=== PATIENT | male | born 1945 | race African-American/Black ===

== ENCOUNTER 2017-05-08 16:23 | Observation (INO) | payer MEDICARE, OTHER ==
[~2017-05-08] VITALS: Ht 172.7 cm; Wt 101.6 kg
[~2017-05-08 16:23] MED LIST: AMLO-79 PO; ATEN100T PO; ATOR40TA70 PO; INSLAN SQ; INSU100C6 SQ
[2017-05-08] MEDS ORDERED: SODIUM CHLORIDE 0.9% 250 ML IV ONE (16:59)
[2017-05-08 17:11] LABS: EOSINOPHILS % 1.1 % (0.0-5.0); HEMATOCRIT. 36.6 % (42.0-52.0); HEMOGLOBIN. 11.8 g/dL (14.0-18.0); LYMPHOCYTES % 19.2 % (20.0-50.0); MEAN PLATELET VOLUME 8.4 fl (7.4-10.4); NEUTROPHILS % 70.7 % (40.0-76.0); PLATELET 254 x1000/uL (130-400); RED BLOOD CELL COUNT 4.07 mill/uL (4.7-6.1); RED CELL DISTRIBUTION WIDTH 17.2 % (11.6-14.6)
[2017-05-08 17:19] LABS: CARBON DIOXIDE 26 mEq/L (21-32); CHLORIDE 103 mEq/L (98-107)
[2017-05-08 17:25] LABS: TROPONIN I < 0.02 ng/mL (0.00-0.04)
[2017-05-08 23:00] VITALS: BP 86/62
[2017-05-09] MEDS ORDERED: DEXTROSE 50% WATER 50ML SYRINGE IV PRN (01:15)
[2017-05-09] MEDS ORDERED: ACETAMINOPHEN 325MG TABLET PO PRN (01:15)
[2017-05-09] MEDS ORDERED: SODIUM CHLORIDE 0.45% 1,000 ML IV SCH (01:15)
[2017-05-09 04:27] VITALS: BP 120/69
[2017-05-09 07:02] LABS: BASOPHILS % 0.8 % (0.0-2.0); EOSINOPHILS % 1.3 % (0.0-5.0); HEMATOCRIT. 34.6 % (42.0-52.0); HEMOGLOBIN. 11.4 g/dL (14.0-18.0); LYMPHOCYTES % 32.2 % (20.0-50.0); MEAN CORPUSCULAR HEMOGLOBIN 29.3 pg (28.0-32.0); MEAN CORPUSCULAR VOLUME 89.1 fL (80.0-94.0); MEAN PLATELET VOLUME 8.9 fl (7.4-10.4); MONOCYTES % 9.9 % (2.0-8.0); NEUTROPHILS % 55.8 % (40.0-76.0); PLATELET 233 x1000/uL (130-400); RED BLOOD CELL COUNT 3.88 mill/uL (4.7-6.1)
[2017-05-09] MEDS: BLOOD SUGAR DIAGNOSTIC STRIP TEST SCH ×3 (07:20→17:20)
[2017-05-09] MEDS: INSULIN LISPRO 100 UNITS/ML SUBCUT SCH ×3 (07:50→17:50)
[2017-05-09 07:54] LABS: CARBON DIOXIDE 25 mEq/L (21-32); CHLORIDE 103 mEq/L (98-107); HDL CHOLESTEROL 48 mg/dL (40-59); LDL CHOLESTEROL 97 mg/dL (5-100)
[2017-05-09 08:00] VITALS: BP 126/73
[2017-05-09 08:04] LABS: CREATINE KINASE 127 IU/L (39-308); CREATINE KINASE MB FRACTION 1.1 ng/mL (0.5-3.6); TROPONIN I < 0.02 ng/mL (0.00-0.04)
[2017-05-09] MEDS ORDERED: ASPIRIN 81MG TABLET PO SCH (09:00)
[2017-05-09] MEDS ORDERED: PANTOPRAZOLE SODIUM 40 MG/VIAL IV SCH (09:00)
[2017-05-09 12:00] VITALS: BP 105/43
[2017-05-09] MEDS ORDERED: SODIUM CHLORIDE 0.9% 1000ML BAG (SEPSIS BOLUS) IV ONE (14:00)
[2017-05-09] MEDS ORDERED: SODIUM CHLORIDE 0.9% 500 ML IV SCH (14:00)
[2017-05-09 16:00] VITALS: BP 158/80
[2017-05-09 16:25] LABS: CREATINE KINASE 113 IU/L (39-308); CREATINE KINASE MB FRACTION 1.1 ng/mL (0.5-3.6); TROPONIN I < 0.02 ng/mL (0.00-0.04)
[2017-05-09 17:31] VITALS: BP 144/77
== END 2017-05-09 18:00 | disposition home or self-care (01) ==
LOC: ER 16:50 → 6WST 17:24 → INTOOBSV 17:24 → ENRESERV 21:43
PROVIDERS: ADMIT Internal Medicine; ATTEND Internal Medicine
DX: R55 Syncope and collapse (principal); E11.22 Type 2 diabetes mellitus with diabetic chronic kidney disease; I12.0 Hypertensive chronic kidney disease with stage 5 chronic kidney disease or end stage renal disease; G90.8 Other disorders of autonomic nervous system; N18.6 End stage renal disease; Z99.2 Dependence on renal dialysis
CPT/HCPCS: 36415; 70450; 71010; 80053; 80061; 82550; 82553; 82962; 83735; 84443; 84484; 85025; 93005; 93880; 96361; 96372; 96374; 99285; C9113; G0378; J1815; J7040; J7050; 96360

== ENCOUNTER 2017-07-27 11:42 | Observation (INO) | payer MEDICARE, OTHER ==
[~2017-07-27] VITALS: Ht 172.7 cm; Wt 101.3 kg
[2017-07-27 12:23] LABS: BASOPHILS % 0.9 % (0.0-2.0); EOSINOPHILS % 0.7 % (0.0-5.0); HEMATOCRIT. 40.3 % (42.0-52.0); HEMOGLOBIN. 13.1 g/dL (14.0-18.0); LYMPHOCYTES % 32.2 % (20.0-50.0); MEAN CORPUSCULAR HEMOGLOBIN 29.7 pg (28.0-32.0); MEAN CORPUSCULAR VOLUME 91.2 fL (80.0-94.0); MEAN PLATELET VOLUME 8.6 fl (7.4-10.4); MONOCYTES % 10.2 % (2.0-8.0); PLATELET 336 x1000/uL (130-400); RED BLOOD CELL COUNT 4.42 mill/uL (4.7-6.1); RED CELL DISTRIBUTION WIDTH 14.5 % (11.6-14.6)
[2017-07-27 12:27] LABS: INR 1.1; PROTHROMBIN TIME 11.4 sec (9.4-11.6)
[2017-07-27 12:38] LABS: CARBON DIOXIDE 27 mEq/L (21-32); CHLORIDE 104 mEq/L (98-107); TROPONIN I < 0.02 ng/mL (0.00-0.04)
[2017-07-27] MEDS ORDERED: DEXTROSE 50% WATER 50ML SYRINGE IV ONE (12:45)
[2017-07-27 17:00] VITALS: BP 129/68
[2017-07-27] MEDS ORDERED: CLONIDINE 0.1MG TABLET PO PRN (17:15)
[2017-07-27] MEDS ORDERED: ONDANSETRON HCL 4MG/2ML VIAL IV PRN (17:15)
[2017-07-27] MEDS ORDERED: HYDROMORPHONE HCL/PF 2MG/ML CPJ IV PRN (17:15)
[2017-07-27] MEDS ORDERED: DEXTROSE 50% WATER 50ML SYRINGE IV PRN (17:15)
[2017-07-27] MEDS: BLOOD SUGAR DIAGNOSTIC STRIP TEST SCH ×2 (17:40→22:39)
[2017-07-27] MEDS: INSULIN LISPRO 100 UNITS/ML SUBCUT SCH ×2 (17:48→22:35)
[2017-07-27 20:00] VITALS: BP 117/72
[2017-07-27] MEDS ORDERED: FAMOTIDINE 20MG/2ML VIAL IV SCH (20:00)
[2017-07-27] MEDS ORDERED: ATORVASTATIN CALCIUM 40MG TABLET PO SCH (21:00)
[2017-07-27] MEDS ORDERED: MEDICATION NOT ON FORMULARY EA (Amlodipine Besylate/Benazepril (Amlodipine-Benazepril 10 PO SCH (21:00)
[2017-07-28] VITALS (7 sets, daily range): BP systolic 90–136; BP diastolic 44–71
[2017-07-28 06:44] LABS: HEMOGLOBIN 12.7 g/dL (14.0-18.0); MEAN CORPUSCULAR HEMOGLOBIN 29.6 pg (28.0-32.0); MEAN CORPUSCULAR VOLUME 90.8 fL (80.0-94.0); PLATELET 264 x1000/uL (130-400); RED CELL DISTRIBUTION WIDTH 14.8 % (11.6-14.6)
[2017-07-28 07:28] LABS: CARBON DIOXIDE 24 mEq/L (21-32); CHLORIDE 99 mEq/L (98-107)
[2017-07-28] MEDS: BLOOD SUGAR DIAGNOSTIC STRIP TEST SCH ×2 (07:32→12:40)
[2017-07-28] MEDS: INSULIN LISPRO 100 UNITS/ML SUBCUT SCH ×2 (08:56→14:34)
[2017-07-28] MEDS ORDERED: ATENOLOL 100 MG TABLET PO SCH (09:00)
[2017-07-28] MEDS ORDERED: ENOXAPARIN 30MG/0.3ML SYR SUBCUT SCH (09:00)
[2017-07-28] MEDS ORDERED: ENOXAPARIN 40MG/0.4ML SYR SUBCUT SCH (09:00)
[2017-07-28] MEDS ORDERED: BENAZEPRIL 20MG TABLET PO SCH (09:00)
[2017-07-28] MEDS ORDERED: PANTOPRAZOLE SODIUM 40 MG/VIAL IV SCH (09:00)
[2017-07-28] MEDS ORDERED: AMLODIPINE 10MG TABLET PO SCH (09:00)
== END 2017-07-28 18:15 | disposition home or self-care (01) ==
LOC: ER 11:44 → 7WST 13:04 → INTOOBSV 13:04 → EDBEDREQ 13:07 → EDBEDREQTM 13:07 → ENRESERV 15:38 → 7WST 17:10
PROVIDERS: ADMIT Internal Medicine; ATTEND Internal Medicine
DX: G90.8 Other disorders of autonomic nervous system (principal); I12.0 Hypertensive chronic kidney disease with stage 5 chronic kidney disease or end stage renal disease; E11.649 Type 2 diabetes mellitus with hypoglycemia without coma; E11.22 Type 2 diabetes mellitus with diabetic chronic kidney disease; N18.6 End stage renal disease; Z99.2 Dependence on renal dialysis
CPT/HCPCS: 36415; 71010; 80053; 82962; 83880; 84484; 85025; 85027; 85610; 93005; 96372; 96374; 96375; 99285; G0378; J1650; J1815; J3490

== ENCOUNTER 2018-04-15 22:52 | Emergency (ER) | payer OTHER ==
[~2018-04-15] VITALS: Ht 172.7 cm; Wt 113.0 kg
[~2018-04-15 22:52] MED LIST changes: -AMLO-79 PO; -ATEN100T PO; -ATOR40TA70 PO
[2018-04-16 02:26] LABS: CHLORIDE 108 mEq/L (98-107)
[2018-04-16 03:22] LABS: BASOPHILS % 0.9 % (0.0-2.0); EOSINOPHILS % 2.7 % (0.0-5.0); HEMOGLOBIN. 9.5 g/dL (14.0-18.0); MEAN CORPUSCULAR HEMOGLOBIN 30.5 pg (28.0-32.0); MEAN CORPUSCULAR VOLUME 92.7 fL (80.0-94.0); MEAN PLATELET VOLUME 9.9 fl (7.4-10.4); MONOCYTES % 8.4 % (2.0-8.0); PLATELET 171 x1000/uL (130-400); RED BLOOD CELL COUNT 3.13 mill/uL (4.7-6.1); RED CELL DISTRIBUTION WIDTH 16.6 % (11.6-14.6)
[2018-04-16 03:44] LABS: CLARITY URINE CLEAR (CLEAR); COLOR URINE YELLOW (YELLOW); KETONES URINE NEGATIVE (NEGATIVE); LEUKOCYTE ESTERASE URINE NEGATIVE (NEGATIVE); NITRITE URINE NEGATIVE (NEGATIVE); OCCULT BLOOD URINE 2+ (NEGATIVE); PROTEIN URINE 2+ (NEGATIVE); SPECIFIC GRAVITY URINE 1.015 (1.005-1.030); UROBILINOGEN URINE 0.2 E.U./dL (0.2-1.0)
[2018-04-16 07:00] VITALS: BP 144/69
== END 2018-04-16 07:45 | disposition home or self-care (01) ==
LOC: ER 22:52
DX: R60.9 Edema, unspecified (principal); E11.9 Type 2 diabetes mellitus without complications; I10 Essential (primary) hypertension; Z79.4 Long term (current) use of insulin
CPT/HCPCS: 36415; 80053; 81003; 85025; 99284

== ENCOUNTER 2018-07-03 16:48 | Inpatient (IN) | payer MEDICARE, OTHER ==
[~2018-07-03] VITALS: Ht 172.7 cm; Wt 121.1 kg
[2018-07-03] MEDS ORDERED: ONDANSETRON HCL 4MG/2ML INJ IV STA (18:34)
[2018-07-03] MEDS ORDERED: MORPHINE SULFATE 4 MG/ML CPJ (NOT FOR IM USE) IV STA (18:34)
[2018-07-03 19:21] LABS: BASOPHILS % 0.8 % (0.0-2.0); EOSINOPHILS % 2.5 % (0.0-5.0); HEMATOCRIT. 34.1 % (42.0-52.0); HEMOGLOBIN. 11.2 g/dL (14.0-18.0); MEAN CORPUSCULAR VOLUME 94.2 fL (80.0-94.0); MEAN PLATELET VOLUME 9.8 fl (7.4-10.4); MONOCYTES % 9.3 % (2.0-8.0); NEUTROPHILS % 72.4 % (40.0-76.0); PLATELET 177 x1000/uL (130-400); RED BLOOD CELL COUNT 3.62 mill/uL (4.7-6.1)
[2018-07-03 19:29] LABS: CHLORIDE 102 mEq/L (98-107)
[2018-07-03 19:34] LABS: INR 1.1; PARTIAL THROMBOPLASTIN TIME 28.6 sec (23.4-31.0); PROTHROMBIN TIME 10.7 sec (9.1-11.1)
[2018-07-03 19:37] LABS: ETHANOL BLOOD < 10 mg/dL
[2018-07-03 22:30] VITALS: BP 149/67
[2018-07-04] MEDS ORDERED: ACETAMINOPHEN 325MG TABLET PO PRN (00:45)
[2018-07-04] MEDS ORDERED: ATOR20TA65 MT (03:27)
[2018-07-04] MEDS ORDERED: REN800 MT (03:28)
[2018-07-04] MEDS ORDERED: FURO-151 MT (03:28)
[2018-07-04 04:00] VITALS: BP 186/86
[2018-07-04] MEDS ORDERED: CLONIDINE 0.1MG TABLET PO PRN (05:30)
[2018-07-04] MEDS: SODIUM CHLORIDE 0.9% INJ 3ML FLUSH IVF SCH ×3 (06:35→21:32)
[2018-07-04 06:56] LABS: BASOPHILS % 1.1 % (0.0-2.0); EOSINOPHILS % 2.5 % (0.0-5.0); HEMOGLOBIN. 11.7 g/dL (14.0-18.0); LYMPHOCYTES % 16.6 % (20.0-50.0); MEAN CORPUSCULAR HEMOGLOBIN 31.4 pg (28.0-32.0); MEAN CORPUSCULAR VOLUME 93.9 fL (80.0-94.0); MEAN PLATELET VOLUME 9.8 fl (7.4-10.4); MONOCYTES % 11.5 % (2.0-8.0); NEUTROPHILS % 68.3 % (40.0-76.0); PLATELET 184 x1000/uL (130-400); RED BLOOD CELL COUNT 3.73 mill/uL (4.7-6.1); RED CELL DISTRIBUTION WIDTH 14.2 % (11.6-14.6)
[2018-07-04 07:43] LABS: CHLORIDE 102 mEq/L (98-107)
[2018-07-04 07:53] LABS: LDL CHOLESTEROL 111 mg/dL (5-100)
[2018-07-04 07:55] LABS: HDL CHOLESTEROL 53 mg/dL (40-59)
[2018-07-04 08:00] VITALS: BP 159/77
[2018-07-04] MEDS: AMLODIPINE 10MG TABLET PO SCH (08:50)
[2018-07-04] MEDS: ATENOLOL 100 MG TABLET PO SCH (08:51)
[2018-07-04] MEDS: ASPIRIN 81MG TABLET PO SCH (08:51)
[2018-07-04] MEDS: LISINOPRIL 40MG TABLET PO SCH (08:51)
[2018-07-04] MEDS ORDERED: ENOXAPARIN 30MG/0.3ML SYR SUBCUT SCH (09:00)
[2018-07-04] MEDS ORDERED: INSULIN GLARGINE UD 100 UNITS/ML SYR SUBCUT SCH (10:00)
[2018-07-04] MEDS: INSULIN GLARGINE UD 100 UNITS/ML SYR SUBCUT SCH ×2 (11:04→21:32)
[2018-07-04 12:00] VITALS: BP 109/51
[2018-07-04 16:00] VITALS: BP 141/82
[2018-07-04] MEDS ORDERED: PANTOPRAZOLE 40MG DR TABLET PO SCH (16:00)
[2018-07-04] MEDS ORDERED: PANTOPRAZOLE 40MG DR TABLET PO NR (16:15)
[2018-07-04 20:00] VITALS: BP 128/61
[2018-07-04] MEDS ORDERED: ATORVASTATIN CALCIUM 40MG TABLET PO SCH (21:00)
[2018-07-05] VITALS: BP_SYST 124; BP_SYST 125; BP_DIAS 70; BP_DIAS 72
[2018-07-05] MEDS ORDERED: DEXTROSE 50% WATER 50ML SYRINGE IV PRN (01:30)
[2018-07-05 04:00] VITALS: BP 125/72
[2018-07-05] MEDS: SODIUM CHLORIDE 0.9% INJ 3ML FLUSH IVF SCH ×2 (05:24→14:04)
[2018-07-05] MEDS ORDERED: PANTOPRAZOLE 40MG DR TABLET PO SCH (07:40)
[2018-07-05 08:00] VITALS: BP 140/77
[2018-07-05] MEDS: BLOOD SUGAR DIAGNOSTIC STRIP TEST SCH ×3 (08:01→18:22)
[2018-07-05] MEDS: AMLODIPINE 10MG TABLET PO SCH (08:39)
[2018-07-05] MEDS: LISINOPRIL 40MG TABLET PO SCH (08:40)
[2018-07-05] MEDS: ASPIRIN 81MG TABLET PO SCH (08:40)
[2018-07-05] MEDS: ATENOLOL 100 MG TABLET PO SCH (08:40)
[2018-07-05] MEDS: INSULIN LISPRO 100 UNITS/ML SUBCUT SCH ×3 (08:44→18:10)
[2018-07-05] MEDS ORDERED: ENOXAPARIN 40MG/0.4ML SYR SUBCUT SCH (09:00)
[2018-07-05] MEDS: INSULIN GLARGINE UD 100 UNITS/ML SYR SUBCUT SCH (10:19)
[2018-07-05 12:00] VITALS: BP 111/57
[2018-07-05 16:00] VITALS: BP 132/67
[2018-07-05 18:26] VITALS: BP 129/68
== END 2018-07-05 19:12 | disposition home or self-care (01) | DRG 640 ==
LOC: ER 16:48 → 7WST 20:57 → ENRESERV 21:04 → 7WST 07-04 01:50
PROVIDERS: ADMIT Internal Medicine; ATTEND Internal Medicine
PROC: 5A1D70Z Performance of Urinary Filtration, Intermittent, Less than 6 Hours Per Day (ICD-10-PCS; principal; 2018-07-05)
DX: E87.70 Fluid overload, unspecified (principal); N18.6 End stage renal disease; I13.2 Hypertensive heart and chronic kidney disease with heart failure and with stage 5 chronic kidney disease, or end stage renal disease; D63.8 Anemia in other chronic diseases classified elsewhere; E11.21 Type 2 diabetes mellitus with diabetic nephropathy; E11.22 Type 2 diabetes mellitus with diabetic chronic kidney disease; E11.40 Type 2 diabetes mellitus with diabetic neuropathy, unspecified; E78.5 Hyperlipidemia, unspecified; I50.9 Heart failure, unspecified; Z91.19 Patient's noncompliance with other medical treatment and regimen; Z99.2 Dependence on renal dialysis; Z86.73 Personal history of transient ischemic attack (TIA), and cerebral infarction without residual deficits; Z79.4 Long term (current) use of insulin
CPT/HCPCS: 36415; 71045; 80048; 80053; 80061; 82962; 83036; 83690; 83880; 84484; 85025; 85610; 85730; 93005; 93306; 96374; 96375; 99285; G0482; J1650; J1815; J2270; J2405; J7030

== ENCOUNTER 2019-02-20 09:50 | Emergency (ER) | payer OTHER, MEDICAID ==
[~2019-02-20] VITALS: Ht 172.7 cm; Wt 113.0 kg
[~2019-02-20 09:50] MED LIST changes: +ATOR20TA65 MT; +FURO-151 MT; +REN800 MT
[2019-02-20] MEDS ORDERED: ACETAMINOPHEN 325MG TABLET PO STA (10:18)
[2019-02-20] MEDS ORDERED: KETOROLAC 30MG/ML VIAL IV STA (10:18)
[2019-02-20] MEDS ORDERED: SODIUM CHLORIDE 0.9% 1000ML BAG (SEPSIS BOLUS) IV ONE (10:30)
[2019-02-20] MEDS ORDERED: METOCLOPRAMIDE HCL 10MG/2ML VIAL IV ONE (10:30)
[2019-02-20 11:07] LABS: BASOPHILS % 0.9 % (0.0-2.0); EOSINOPHILS % 2.3 % (0.0-5.0); HEMATOCRIT. 35.5 % (42.0-52.0); HEMOGLOBIN. 11.4 g/dL (14.0-18.0); LYMPHOCYTES % 17.4 % (20.0-50.0); MEAN CORPUSCULAR HEMOGLOBIN 30.4 pg (28.0-32.0); MEAN CORPUSCULAR VOLUME 94.8 fL (80.0-94.0); MEAN PLATELET VOLUME 9.6 fl (7.4-10.4); NEUTROPHILS % 71.4 % (40.0-76.0); PLATELET 263 x1000/uL (130-400); RED BLOOD CELL COUNT 3.75 mill/uL (4.7-6.1); RED CELL DISTRIBUTION WIDTH 14.3 % (11.6-14.6)
[2019-02-20 11:13] LABS: INR 1.1; PROTHROMBIN TIME 10.9 sec (9.6-11.0)
[2019-02-20 11:16] LABS: CHLORIDE 103 mEq/L (98-107)
[2019-02-20 13:06] LABS: CLARITY URINE CLEAR (CLEAR); COLOR URINE YELLOW (YELLOW); KETONES URINE NEGATIVE (NEGATIVE); LEUKOCYTE ESTERASE URINE NEGATIVE (NEGATIVE); NITRITE URINE NEGATIVE (NEGATIVE); OCCULT BLOOD URINE 1+ (NEGATIVE); PH URINE 7.5 (4.5-8.0); PROTEIN URINE 3+ (NEGATIVE); SPECIFIC GRAVITY URINE 1.017 (1.005-1.030); UROBILINOGEN URINE 0.2 E.U./dL (0.2-1.0)
[2019-02-20 14:38] VITALS: BP 162/98
== END 2019-02-20 14:40 | disposition home or self-care (01) ==
LOC: ER 10:32
DX: R53.1 Weakness (principal); E11.22 Type 2 diabetes mellitus with diabetic chronic kidney disease; E11.65 Type 2 diabetes mellitus with hyperglycemia; I12.0 Hypertensive chronic kidney disease with stage 5 chronic kidney disease or end stage renal disease; N18.6 End stage renal disease; Z99.2 Dependence on renal dialysis; Z79.4 Long term (current) use of insulin
CPT/HCPCS: 36415; 71045; 80053; 81003; 83605; 84145; 84484; 85025; 85610; 87040; 87086; 93005; 96374; 99284; J2765; J7030

== ENCOUNTER 2019-08-01 20:58 | Inpatient (IN) | payer MEDICARE, OTHER ==
[~2019-08-01] VITALS: Ht 172.7 cm; Wt 109.0 kg
[2019-08-01] MEDS ORDERED: ONDANSETRON HCL 4MG/2ML INJ IV STA (22:01)
[2019-08-01] MEDS ORDERED: MORPHINE SULFATE 4 MG/ML CPJ (NOT FOR IM USE) IV STA (22:01)
[2019-08-01] MEDS ORDERED: CLONIDINE 0.2MG TABLET PO ONE (22:15)
[2019-08-01 22:23] LABS: BASOPHILS % 0.4 % (0.0-2.0); EOSINOPHILS % 1.1 % (0.0-5.0); HEMATOCRIT. 33.7 % (42.0-52.0); MEAN CORPUSCULAR HEMOGLOBIN 29.8 pg (28.0-32.0); MEAN CORPUSCULAR VOLUME 91.4 fL (80.0-94.0); MEAN PLATELET VOLUME 9.2 fl (7.4-10.4); NEUTROPHILS % 80.5 % (40.0-76.0); PLATELET 232 x1000/uL (130-400); RED BLOOD CELL COUNT 3.69 mill/uL (4.7-6.1)
[2019-08-01 22:29] LABS: CHLORIDE 101 mEq/L (98-107)
[2019-08-01 22:32] LABS: INR 1.1; PARTIAL THROMBOPLASTIN TIME 25.7 sec (23.4-31.0); PROTHROMBIN TIME 10.9 sec (9.6-11.0)
[2019-08-02 08:00] VITALS: BP 139/63
[2019-08-02] MEDS ORDERED: DEXTROSE 50% WATER 50ML SYRINGE IV PRN (10:45)
[2019-08-02] MEDS: INSULIN LISPRO 100 UNITS/ML SUBCUT SCH ×3 (10:57→21:43)
[2019-08-02 12:00] VITALS: BP 153/69
[2019-08-02 13:36] LABS: BASOPHILS % 0.7 % (0.0-2.0); EOSINOPHILS % 1.9 % (0.0-5.0); HEMATOCRIT. 29.3 % (42.0-52.0); HEMOGLOBIN. 9.4 g/dL (14.0-18.0); LYMPHOCYTES % 13.2 % (20.0-50.0); MEAN CORPUSCULAR HEMOGLOBIN 29.6 pg (28.0-32.0); MEAN CORPUSCULAR VOLUME 92.6 fL (80.0-94.0); MEAN PLATELET VOLUME 9.2 fl (7.4-10.4); NEUTROPHILS % 74.2 % (40.0-76.0); PLATELET 210 x1000/uL (130-400); RED BLOOD CELL COUNT 3.16 mill/uL (4.7-6.1); RED CELL DISTRIBUTION WIDTH 15.3 % (11.6-14.6)
[2019-08-02] MEDS: BLOOD SUGAR DIAGNOSTIC STRIP TEST SCH ×3 (13:37→21:35)
[2019-08-02 13:41] LABS: CHLORIDE 103 mEq/L (98-107)
[2019-08-02] MEDS ORDERED: INSULIN GLARGINE UD 100 UNITS/ML SYR SUBCUT SCH (14:00)
[2019-08-02 16:00] VITALS: BP 150/76
[2019-08-02] MEDS ORDERED: LORAZEPAM 2MG/ML CPJ IV PRN (16:30)
[2019-08-02] MEDS ORDERED: ONDANSETRON HCL 4MG/2ML INJ IV PRN (16:30)
[2019-08-02] MEDS ORDERED: DIPHENHYDRAMINE 50MG/ML VIAL IV PRN (16:30)
[2019-08-02] MEDS ORDERED: IPRATROPIUM/ALBUTEROL 0.5-3(2.5)MG/3ML NEB HHN PRN (16:30)
[2019-08-02] MEDS ORDERED: CLONIDINE 0.1MG TABLET PO PRN (16:30)
[2019-08-02] MEDS ORDERED: LACTULOSE 20G/30ML UDC PO PRN (16:30)
[2019-08-02] MEDS ORDERED: POTASSIUM CHLORIDE 20MEQ TABLET SR PO NR (16:50)
[2019-08-02] MEDS ORDERED: HYDROCODONE/ACETAMINOPHEN 5/325MG TABLET PO PRN (17:00)
[2019-08-02] MEDS: AMLODIPINE 5MG TABLET PO SCH (18:24)
[2019-08-02 20:00] VITALS: BP 141/60
[2019-08-02] MEDS: FAMOTIDINE 20MG TABLET PO SCH (21:14)
[2019-08-02] MEDS: INSULIN GLARGINE UD 100 UNITS/ML SYR SUBCUT SCH (21:35)
[2019-08-03] VITALS: BP 125/69
[2019-08-03 04:00] VITALS: BP 157/67
[2019-08-03] MEDS: BLOOD SUGAR DIAGNOSTIC STRIP TEST SCH ×4 (05:43→21:30)
[2019-08-03 07:54] LABS: HEMATOCRIT 31.7 % (42.0-52.0); HEMOGLOBIN 10.2 g/dL (14.0-18.0); MEAN CORPUSCULAR HEMOGLOBIN 29.2 pg (28.0-32.0); MEAN CORPUSCULAR VOLUME 90.9 fL (80.0-94.0); PLATELET 243 x1000/uL (130-400); RED BLOOD CELL COUNT 3.48 mill/uL (4.7-6.1); RED CELL DISTRIBUTION WIDTH 15.1 % (11.6-14.6)
[2019-08-03 08:00] VITALS: BP 159/61
[2019-08-03 08:06] LABS: PHOSPHORUS 4.9 mg/dL (2.5-4.9)
[2019-08-03 08:10] LABS: T4 FREE 1.12 ng/dL (0.76-1.46)
[2019-08-03] MEDS: AMLODIPINE 5MG TABLET PO SCH (10:19)
[2019-08-03] MEDS: INSULIN GLARGINE UD 100 UNITS/ML SYR SUBCUT SCH ×2 (10:21→21:55)
[2019-08-03] MEDS: INSULIN LISPRO 100 UNITS/ML SUBCUT SCH ×5 (10:22→18:27)
[2019-08-03 12:00] VITALS: BP 179/84
[2019-08-03] MEDS ORDERED: BLOOD SUGAR DIAGNOSTIC STRIP TEST SCH (12:40)
[2019-08-03] MEDS ORDERED: DEXTROSE 50% WATER 50ML SYRINGE IV PRN (12:45)
[2019-08-03 16:00] VITALS: BP 141/64
[2019-08-03] MEDS ORDERED: LEVOFLOXACIN 500MG TABLET PO SCH (18:00)
[2019-08-03 20:00] VITALS: BP 130/77
[2019-08-03] MEDS: FAMOTIDINE 20MG TABLET PO SCH (21:34)
[2019-08-04] VITALS: BP 113/46
[2019-08-04 04:00] VITALS: BP 141/63
[2019-08-04] MEDS: BLOOD SUGAR DIAGNOSTIC STRIP TEST SCH ×2 (06:01→12:33)
[2019-08-04 07:24] LABS: HEMATOCRIT 32.3 % (42.0-52.0); HEMOGLOBIN 10.5 g/dL (14.0-18.0); MEAN CORPUSCULAR HEMOGLOBIN 29.7 pg (28.0-32.0); PLATELET 256 x1000/uL (130-400); RED BLOOD CELL COUNT 3.55 mill/uL (4.7-6.1); RED CELL DISTRIBUTION WIDTH 15.1 % (11.6-14.6)
[2019-08-04 09:40] VITALS: BP 120/64
[2019-08-04] MEDS: AMLODIPINE 5MG TABLET PO SCH (09:40)
[2019-08-04] MEDS: INSULIN GLARGINE UD 100 UNITS/ML SYR SUBCUT SCH (10:30)
[2019-08-04 12:00] VITALS: BP 125/69
[2019-08-04] MEDS ORDERED: INSULIN LISPRO 100 UNITS/ML SUBCUT NR (13:30)
[2019-08-04 16:00] VITALS: BP 134/67
[2019-08-04 16:04] VITALS: BP 134/67
[2019-08-05] MEDS ORDERED: LEVOFLOXACIN 250MG TABLET PO SCH (11:00)
== END 2019-08-04 17:05 | disposition home or self-care (01) | DRG 291 ==
LOC: ER 22:51 → 7WST 08-02 00:43 → EDBEDREQ 08-02 00:47 → EDBEDREQTM 08-02 00:47 → ENRESERV 08-02 07:23
PROVIDERS: ADMIT Internal Medicine; ATTEND Internal Medicine
PROC: 5A1D70Z Performance of Urinary Filtration, Intermittent, Less than 6 Hours Per Day (ICD-10-PCS; principal; 2019-08-02)
PROC: 5A1D70Z Performance of Urinary Filtration, Intermittent, Less than 6 Hours Per Day (ICD-10-PCS; 2019-08-03)
DX: I13.2 Hypertensive heart and chronic kidney disease with heart failure and with stage 5 chronic kidney disease, or end stage renal disease (principal); I50.33 Acute on chronic diastolic (congestive) heart failure; N18.6 End stage renal disease; E66.2 Morbid (severe) obesity with alveolar hypoventilation; D64.9 Anemia, unspecified; E11.22 Type 2 diabetes mellitus with diabetic chronic kidney disease; E78.00 Pure hypercholesterolemia, unspecified; G89.29 Other chronic pain; E11.65 Type 2 diabetes mellitus with hyperglycemia; M79.604 Pain in right leg; E78.5 Hyperlipidemia, unspecified; E87.6 Hypokalemia; I16.0 Hypertensive urgency; Z86.73 Personal history of transient ischemic attack (TIA), and cerebral infarction without residual deficits; Z87.891 Personal history of nicotine dependence; Z99.2 Dependence on renal dialysis; Z91.19 Patient's noncompliance with other medical treatment and regimen; Z68.36 Body mass index [BMI] 36.0-36.9, adult
CPT/HCPCS: 36415; 71045; 80048; 82962; 83036; 83735; 83880; 84100; 84439; 84443; 84484; 85027; 93005; 93923; 97161; 99285; J1815; J2270; J2405

== ENCOUNTER 2019-08-15 22:21 | Inpatient (IN) | payer MEDICARE, OTHER ==
[~2019-08-15] VITALS: Ht 172.7 cm; Wt 106.1 kg
[2019-08-16 00:30] LABS: BASOPHILS % 0.9 % (0.0-2.0); EOSINOPHILS % 1.4 % (0.0-5.0); HEMATOCRIT. 35.7 % (42.0-52.0); HEMOGLOBIN. 11.5 g/dL (14.0-18.0); LYMPHOCYTES % 13.4 % (20.0-50.0); MEAN CORPUSCULAR HEMOGLOBIN 29.5 pg (28.0-32.0); MEAN CORPUSCULAR VOLUME 91.6 fL (80.0-94.0); MEAN PLATELET VOLUME 8.7 fl (7.4-10.4); MONOCYTES % 6.3 % (2.0-8.0); PLATELET 301 x1000/uL (130-400)
[2019-08-16 00:32] LABS: CLARITY URINE CLEAR (CLEAR); COLOR URINE YELLOW (YELLOW); KETONES URINE NEGATIVE (NEGATIVE); LEUKOCYTE ESTERASE URINE NEGATIVE (NEGATIVE); NITRITE URINE NEGATIVE (NEGATIVE); OCCULT BLOOD URINE 1+ (NEGATIVE); PROTEIN URINE 3+ (NEGATIVE); SPECIFIC GRAVITY URINE 1.017 (1.005-1.030); UROBILINOGEN URINE 0.2 E.U./dL (0.2-1.0)
[2019-08-16 00:37] LABS: CHLORIDE 101 mEq/L (98-107)
[2019-08-16] MEDS ORDERED: MORPHINE SULFATE 2 MG/ML CPJ (NOT FOR IM USE) IV PRN (05:12)
[2019-08-16] MEDS ORDERED: DEXTROSE 50% WATER 50ML SYRINGE IV PRN (05:15)
[2019-08-16] MEDS: BLOOD SUGAR DIAGNOSTIC STRIP TEST SCH ×4 (09:07→21:17)
[2019-08-16] MEDS: INSULIN LISPRO (LOW DOSE) 100 UNITS/ML SUBCUT SCH ×4 (09:22→21:17)
[2019-08-16 10:39] VITALS: BP 199/101
[2019-08-16 12:00] VITALS: BP 185/97
[2019-08-16] MEDS ORDERED: ONDANSETRON HCL 4MG/2ML INJ IV PRN (12:30)
[2019-08-16] MEDS ORDERED: ACETAMINOPHEN 325MG TABLET PO PRN (12:30)
[2019-08-16] MEDS ORDERED: IPRATROPIUM/ALBUTEROL 0.5-3(2.5)MG/3ML NEB HHN PRN (12:30)
[2019-08-16] MEDS ORDERED: CLONIDINE 0.1MG TABLET PO PRN ×2 (12:30→13:45)
[2019-08-16] MEDS ORDERED: HYDROCODONE/ACETAMINOPHEN 5/325MG TABLET PO PRN (12:30)
[2019-08-16] MEDS ORDERED: ASPIRIN 81MG EC TABLET PO SCH (13:00)
[2019-08-16] MEDS ORDERED: ENOXAPARIN 40MG/0.4ML SYR SUBCUT SCH (13:00)
[2019-08-16] MEDS ORDERED: HYDRALAZINE 20MG/ML VIAL IV PRN (13:30)
[2019-08-16 14:16] LABS: *AMPHETAMINES SCREEN URINE NEGATIVE (NEGATIVE); *BARBITURATES SCREEN URINE NEGATIVE (NEGATIVE); CANNABINOID URINE SCREEN NEGATIVE (NEGATIVE)
[2019-08-16 14:18] LABS: *BENZODIAZEPINES SCREEN URINE NEGATIVE (NEGATIVE)
[2019-08-16 14:19] LABS: *COCAINE SCREEN URINE NEGATIVE (NEGATIVE); METHADONE URINE SCREEN NEGATIVE (NEGATIVE)
[2019-08-16 14:20] LABS: OPIATES URINE SCREEN NEGATIVE (NEGATIVE); PHENCYCLIDINE URINE SCREEN NEGATIVE (NEGATIVE)
[2019-08-16] MEDS: AMLODIPINE 5MG TABLET PO SCH ×2 (14:26→21:16)
[2019-08-16] MEDS: LOSARTAN POTASSIUM 25 MG TABLET PO SCH ×2 (14:26→21:16)
[2019-08-16 16:00] VITALS: BP 157/84
[2019-08-16 16:09] LABS: CREATINE KINASE 93 IU/L (39-308)
[2019-08-16 16:10] LABS: CREATINE KINASE MB FRACTION 2.6 ng/mL (0.5-3.6)
[2019-08-16] MEDS ORDERED: INSULIN GLARGINE UD 100 UNITS/ML SYR SUBCUT NR (17:30)
[2019-08-16 20:00] VITALS: BP 172/74
[2019-08-17] VITALS (10 sets, daily range): BP systolic 114–155; BP diastolic 48–99
[2019-08-17 00:26] LABS: CREATINE KINASE 81 IU/L (39-308)
[2019-08-17 00:27] LABS: CREATINE KINASE MB FRACTION 2.2 ng/mL (0.5-3.6)
[2019-08-17 05:37] LABS: BASOPHILS % 0.8 % (0.0-2.0); EOSINOPHILS % 1.8 % (0.0-5.0); HEMATOCRIT. 36.5 % (42.0-52.0); HEMOGLOBIN. 11.8 g/dL (14.0-18.0); LYMPHOCYTES % 16.9 % (20.0-50.0); MEAN CORPUSCULAR HEMOGLOBIN 29.6 pg (28.0-32.0); MEAN CORPUSCULAR VOLUME 91.5 fL (80.0-94.0); MEAN PLATELET VOLUME 9.1 fl (7.4-10.4); MONOCYTES % 6.1 % (2.0-8.0); NEUTROPHILS % 74.4 % (40.0-76.0); PLATELET 317 x1000/uL (130-400); RED BLOOD CELL COUNT 3.99 mill/uL (4.7-6.1); RED CELL DISTRIBUTION WIDTH 15.2 % (11.6-14.6)
[2019-08-17 07:03] LABS: CHLORIDE 103 mEq/L (98-107)
[2019-08-17 07:19] LABS: HDL CHOLESTEROL 60 mg/dL (40-59)
[2019-08-17 07:20] LABS: LDL CHOLESTEROL 55 mg/dL (5-100)
[2019-08-17 07:25] LABS: T4 FREE 0.99 ng/dL (0.76-1.46)
[2019-08-17] MEDS ORDERED: LIDOCAINE HCL 1% 20ML VIAL (Pyxis) INJ ONE ×2 (07:37→08:15)
[2019-08-17] MEDS ORDERED: IODIXANOL 320MG/ML 100 ML BOTTLE IV ONE ×2 (07:37→08:50)
[2019-08-17] MEDS ORDERED: MIDAZOLAM HCL 2 MG/2 ML VIAL ONE (07:40)
[2019-08-17] MEDS ORDERED: FENTANYL CITRATE/PF 50MCG/ML 2ML VIAL ONE (07:40)
[2019-08-17] MEDS ORDERED: ASPIRIN/SOD BICARB/CITRIC ACID 324MG TAB EFF ONE (07:45)
[2019-08-17 07:50] LABS: CREATINE KINASE MB FRACTION 2.4 ng/mL (0.5-3.6)
[2019-08-17] MEDS: INSULIN LISPRO (LOW DOSE) 100 UNITS/ML SUBCUT SCH ×4 (08:10→20:13)
[2019-08-17] MEDS ORDERED: IOHEXOL-300 100 ML BOTTLE ONE (08:42)
[2019-08-17] MEDS ORDERED: NICARDIPINE 100MCG/ML 10ML VIAL (CATH LAB) IV ONE (09:00)
[2019-08-17] MEDS: AMLODIPINE 5MG TABLET PO SCH ×2 (09:00→20:14)
[2019-08-17] MEDS: LOSARTAN POTASSIUM 25 MG TABLET PO SCH ×2 (09:00→20:14)
[2019-08-17] MEDS ORDERED: NITROGLYCERIN 50MCG/ML 10ML VIAL (CATH LAB) IV ONE (09:00)
[2019-08-17] MEDS ORDERED: HEPARIN SODIUM 1,000 UNIT/1ML VIAL IV ONE (09:00)
[2019-08-17] MEDS ORDERED: CLOPIDOGREL 75MG TABLET ONE (09:05)
[2019-08-17] MEDS ORDERED: ONDANSETRON HCL 4MG/2ML INJ IV PRN (09:15)
[2019-08-17] MEDS ORDERED: MORPHINE SULFATE 2 MG/ML CPJ (NOT FOR IM USE) IV PRN (09:15)
[2019-08-17] MEDS ORDERED: ATROPINE SULFATE 1MG/10ML SYR IV PRN (09:15)
[2019-08-17] MEDS ORDERED: ACETAMINOPHEN 325MG TABLET PO PRN (09:15)
[2019-08-17] MEDS ORDERED: CLOPIDOGREL 75MG TABLET PO ONE (09:15)
[2019-08-17] MEDS: EZETIMIBE 10MG TABLET PO SCH (09:30)
[2019-08-17] MEDS: ASPIRIN 325MG TABLET PO SCH (10:07)
[2019-08-17] MEDS: CLOPIDOGREL 75MG TABLET PO SCH (10:07)
[2019-08-17] MEDS: BLOOD SUGAR DIAGNOSTIC STRIP TEST SCH ×3 (12:19→20:14)
[2019-08-18] VITALS: BP_SYST 127; BP_SYST 162; BP_DIAS 74; BP_DIAS 85
[2019-08-18 02:00] VITALS: BP 116/74
[2019-08-18 04:00] VITALS: BP 125/77
[2019-08-18 06:00] VITALS: BP 145/89
[2019-08-18] MEDS: BLOOD SUGAR DIAGNOSTIC STRIP TEST SCH ×2 (06:40→11:57)
[2019-08-18 07:10] LABS: BASOPHILS % 0.8 % (0.0-2.0); EOSINOPHILS % 1.7 % (0.0-5.0); HEMATOCRIT. 36.6 % (42.0-52.0); HEMOGLOBIN. 11.9 g/dL (14.0-18.0); LYMPHOCYTES % 15.6 % (20.0-50.0); MEAN CORPUSCULAR HEMOGLOBIN 29.3 pg (28.0-32.0); MEAN CORPUSCULAR VOLUME 90.7 fL (80.0-94.0); MEAN PLATELET VOLUME 9.3 fl (7.4-10.4); NEUTROPHILS % 72.9 % (40.0-76.0); PLATELET 267 x1000/uL (130-400); RED BLOOD CELL COUNT 4.04 mill/uL (4.7-6.1); RED CELL DISTRIBUTION WIDTH 15.3 % (11.6-14.6)
[2019-08-18 08:00] VITALS: BP 130/95
[2019-08-18] MEDS: INSULIN LISPRO (LOW DOSE) 100 UNITS/ML SUBCUT SCH ×2 (08:20→12:14)
[2019-08-18] MEDS: AMLODIPINE 5MG TABLET PO SCH (08:21)
[2019-08-18] MEDS: EZETIMIBE 10MG TABLET PO SCH (08:21)
[2019-08-18] MEDS: LOSARTAN POTASSIUM 25 MG TABLET PO SCH (08:22)
[2019-08-18] MEDS: ASPIRIN 325MG TABLET PO SCH (09:55)
[2019-08-18] MEDS: CLOPIDOGREL 75MG TABLET PO SCH (09:55)
[2019-08-18 10:00] VITALS: BP 155/89
[2019-08-18 11:33] LABS: BG BASE EXCESS -5.8 mmol/L (-2.0-2.0); BG CARBOXYHEMOGLOBIN 0.3 % (0.5-1.5); BG FRACTION INSPIRED OXYGEN 21; BG HCO3 ACT 20.1 mmol/L (22.0-26.0); BG METHEMOGLOBIN 0.3 % (0.0-1.5); BG OXYHEMOGLOBIN 94.4 % (94.0-97.0); BG PCO2 41.1 mmHg (35.0-45.0); BG PH 7.308 (7.350-7.450); BG PO2 82.9 mmHg (75.0-100.0); BG SAMPLE SITE RIGHT RADIAL; BG TOTAL HEMOGLOBIN 12.1 g/dL (12.0-18.0); BG VENT MODE ROOM AIR
[2019-08-18] MEDS ORDERED: CLOP75TA4 MT (12:33)
== END 2019-08-18 14:20 | disposition home or self-care (01) | DRG 246 ==
LOC: ER 22:21 → 7WST 08-16 02:24 → EDBEDREQ 08-16 02:30 → EDBEDREQTM 08-16 02:30 → ENRESERV 08-16 08:29 → 3WST 08-17 09:45
PROVIDERS: ADMIT Internal Medicine; ATTEND Internal Medicine
PROC: 5A1D70Z Performance of Urinary Filtration, Intermittent, Less than 6 Hours Per Day (ICD-10-PCS; 2019-08-16)
PROC: 027034Z Dilation of Coronary Artery, One Artery with Drug-eluting Intraluminal Device, Percutaneous Approach (ICD-10-PCS; principal; 2019-08-17)
PROC: 4A023N7 Measurement of Cardiac Sampling and Pressure, Left Heart, Percutaneous Approach (ICD-10-PCS; 2019-08-17)
PROC: B2111ZZ Fluoroscopy of Multiple Coronary Arteries using Low Osmolar Contrast (ICD-10-PCS; 2019-08-17)
PROC: 4A033BC Measurement of Arterial Pressure, Coronary, Percutaneous Approach (ICD-10-PCS; 2019-08-17)
PROC: B2151ZZ Fluoroscopy of Left Heart using Low Osmolar Contrast (ICD-10-PCS; 2019-08-17)
DX: I13.2 Hypertensive heart and chronic kidney disease with heart failure and with stage 5 chronic kidney disease, or end stage renal disease (principal); N18.6 End stage renal disease; I50.33 Acute on chronic diastolic (congestive) heart failure; E66.2 Morbid (severe) obesity with alveolar hypoventilation; R07.89 Other chest pain; I44.7 Left bundle-branch block, unspecified; E11.22 Type 2 diabetes mellitus with diabetic chronic kidney disease; I16.0 Hypertensive urgency; E78.00 Pure hypercholesterolemia, unspecified; E78.5 Hyperlipidemia, unspecified; D64.9 Anemia, unspecified; M79.604 Pain in right leg; I25.10 Atherosclerotic heart disease of native coronary artery without angina pectoris; Z79.82 Long term (current) use of aspirin; Z79.02 Long term (current) use of antithrombotics/antiplatelets; Z99.2 Dependence on renal dialysis; Z86.73 Personal history of transient ischemic attack (TIA), and cerebral infarction without residual deficits; Z91.19 Patient's noncompliance with other medical treatment and regimen; Z87.891 Personal history of nicotine dependence; Z68.35 Body mass index [BMI] 35.0-35.9, adult; Z79.84 Long term (current) use of oral hypoglycemic drugs
CPT/HCPCS: 36415; 36600; 71045; 80048; 80061; 80305; 81003; 82375; 82550; 82553; 82805; 82962; 83735; 83880; 84439; 84443; 84484; 85379; 92928; 93005; 93306; 93458; 93571; 99285; C1760; C1769; C1874; C1887; C1893; J1644; J1650; J1815; J2250; J2270; J3010; J3490; J7040; Q9967

== ENCOUNTER 2019-11-08 02:05 | Emergency (ER) | payer MEDICARE, OTHER ==
[~2019-11-08] VITALS: Ht 167.6 cm; Wt 91.0 kg
[~2019-11-08 02:05] MED LIST changes: -ATOR20TA65 MT; +CLOP75TA4 MT; -FURO-151 MT; -INSLAN SQ; -INSU100C6 SQ; -REN800 MT
[2019-11-08] MEDS ORDERED: AMLODIPINE 5MG TABLET PO ONE (05:00)
[2019-11-08] MEDS ORDERED: ACETAMINOPHEN 325MG TABLET PO ONE (05:15)
[2019-11-08 06:52] LABS: BASOPHILS % 0.9 % (0.0-2.0); EOSINOPHILS % 2.3 % (0.0-5.0); HEMOGLOBIN. 11.9 g/dL (14.0-18.0); LYMPHOCYTES % 20.5 % (20.0-50.0); MEAN CORPUSCULAR HEMOGLOBIN 28.7 pg (28.0-32.0); MEAN CORPUSCULAR VOLUME 89.2 fL (80.0-94.0); MEAN PLATELET VOLUME 9.8 fl (7.4-10.4); MONOCYTES % 6.9 % (2.0-8.0); NEUTROPHILS % 69.4 % (40.0-76.0); PLATELET 207 x1000/uL (130-400); RED BLOOD CELL COUNT 4.15 mill/uL (4.7-6.1); RED CELL DISTRIBUTION WIDTH 14.9 % (11.6-14.6)
[2019-11-08 06:59] LABS: CHLORIDE 102 mEq/L (98-107)
[2019-11-08 11:30] VITALS: BP 141/90
== END 2019-11-08 13:30 | disposition home or self-care (01) ==
LOC: ER 02:05
DX: R53.1 Weakness (principal); I12.0 Hypertensive chronic kidney disease with stage 5 chronic kidney disease or end stage renal disease; N18.6 End stage renal disease; Z99.2 Dependence on renal dialysis
CPT/HCPCS: 36415; 71045; 80053; 82962; 85025; 93005; 99284

== ENCOUNTER 2020-02-22 08:56 | Inpatient (IN) | payer MEDICARE, OTHER ==
[~2020-02-22] VITALS: Ht 172.7 cm; Wt 104.3 kg
[2020-02-22 11:43] LABS: BASOPHILS % 0.6 % (0.0-2.0); EOSINOPHILS % 1.1 % (0.0-5.0); HEMATOCRIT. 27.8 % (42.0-52.0); LYMPHOCYTES % 8.1 % (20.0-50.0); MEAN CORPUSCULAR HEMOGLOBIN 29.6 pg (28.0-32.0); MEAN CORPUSCULAR VOLUME 91.1 fL (80.0-94.0); MEAN PLATELET VOLUME 9.4 fl (7.4-10.4); MONOCYTES % 5.8 % (2.0-8.0); NEUTROPHILS % 84.4 % (40.0-76.0); PLATELET 196 x1000/uL (130-400); RED BLOOD CELL COUNT 3.05 mill/uL (4.7-6.1); RED CELL DISTRIBUTION WIDTH 15.1 % (11.6-14.6)
[2020-02-22 11:46] LABS: PROTHROMBIN TIME 10.8 sec (9.6-11.0)
[2020-02-22 11:49] LABS: CHLORIDE 103 mEq/L (98-107)
[2020-02-22] MEDS ORDERED: CLONIDINE 0.1MG TABLET PO PRN (13:00)
[2020-02-22] MEDS ORDERED: IPRATROPIUM/ALBUTEROL 0.5-3(2.5)MG/3ML NEB NEB PRN (13:00)
[2020-02-22] MEDS ORDERED: ACETAMINOPHEN 650MG SUPP PR PRN (13:00)
[2020-02-22] MEDS ORDERED: HYDROCODONE/ACETAMINOPHEN 5/325MG TABLET PO PRN (13:00)
[2020-02-22] MEDS ORDERED: ACETAMINOPHEN 325MG TABLET PO PRN (13:00)
[2020-02-22] MEDS ORDERED: ONDANSETRON HCL 4MG/2ML INJ IV PRN (13:00)
[2020-02-22] MEDS ORDERED: MAGNESIUM/ALUMINUM HYDROXIDE/SIMETHICONE 30ML UDC PO PRN (13:00)
[2020-02-22] MEDS ORDERED: DOCUSATE SODIUM 100MG CAPSULE PO PRN (13:00)
[2020-02-22] MEDS ORDERED: LORAZEPAM 0.5MG TABLET PO PRN (13:00)
[2020-02-22] MEDS ORDERED: DEXTROSE 50% WATER 50ML SYRINGE IV PRN (13:00)
[2020-02-22] MEDS ORDERED: GUAIFENESIN 200MG/10ML SUGAR FREE UDC PO PRN (13:00)
[2020-02-22] MEDS ORDERED: DIPHENHYDRAMINE 50MG/ML VIAL IV PRN (13:00)
[2020-02-22] MEDS ORDERED: LEVOFLOXACIN 500MG PREMIX 100 ML IV SCH (14:30)
[2020-02-22] MEDS: BLOOD SUGAR DIAGNOSTIC STRIP TEST SCH ×2 (14:58→17:04)
[2020-02-22] MEDS ORDERED: INSULIN GLARGINE UD 100 UNITS/ML SYR SUBCUT NR (15:00)
[2020-02-22 15:11] LABS: BG BASE EXCESS -2.5 mmol/L (-2.0-2.0); BG CARBOXYHEMOGLOBIN 0.3 % (0.5-1.5); BG DEOXYHEMOGLOBIN 2.1 % (0.0-5.0); BG HCO3 ACT 23.9 mmol/L (22.0-26.0); BG METHEMOGLOBIN 0.3 % (0.0-1.5); BG OXYGEN SATURATION 97.9 % (92.0-98.5); BG OXYHEMOGLOBIN 97.3 % (94.0-97.0); BG PCO2 48.5 mmHg (35.0-45.0); BG PH 7.311 (7.350-7.450); BG PO2 140.9 mmHg (75.0-100.0); BG SAMPLE SITE RIGHT RADIAL; BG TOTAL HEMOGLOBIN 11.3 g/dL (12.0-18.0); BG VENT MODE NASAL CANNULA
[2020-02-22] MEDS ORDERED: LOSARTAN POTASSIUM 50 MG TABLET PO NR (15:30)
[2020-02-22] MEDS: INSULIN LISPRO 100 UNITS/ML SUBCUT SCH ×2 (15:44→17:53)
[2020-02-22] MEDS: CLOPIDOGREL 75MG TABLET PO SCH (15:45)
[2020-02-22 17:54] LABS: CLARITY URINE CLEAR (CLEAR); COLOR URINE YELLOW (YELLOW); KETONES URINE NEGATIVE (NEGATIVE); LEUKOCYTE ESTERASE URINE NEGATIVE (NEGATIVE); NITRITE URINE NEGATIVE (NEGATIVE); OCCULT BLOOD URINE 1+ (NEGATIVE); PH URINE 6.5 (4.5-8.0); PROTEIN URINE 3+ (NEGATIVE); SPECIFIC GRAVITY URINE 1.019 (1.005-1.030)
[2020-02-22 18:03] LABS: CREATINE KINASE MB FRACTION 1.6 ng/mL (0.5-3.6)
[2020-02-22] MEDS ORDERED: HYDRALAZINE 20MG/ML VIAL IV PRN (21:00)
[2020-02-22 23:15] VITALS: BP 175/82
[2020-02-23] VITALS: BP 175/82
[2020-02-23] MEDS ORDERED: HYDRALAZINE 20MG/ML VIAL IV PRN (02:00)
[2020-02-23 06:00] VITALS: BP 190/92
[2020-02-23] MEDS: CLOPIDOGREL 75MG TABLET PO SCH (08:22)
[2020-02-23] MEDS: LOSARTAN POTASSIUM 50 MG TABLET PO SCH (08:22)
[2020-02-23] MEDS: INSULIN LISPRO 100 UNITS/ML SUBCUT SCH ×3 (08:25→21:37)
[2020-02-23] MEDS: BLOOD SUGAR DIAGNOSTIC STRIP TEST SCH ×4 (08:29→21:18)
[2020-02-23 10:26] LABS: BASOPHILS % 0.5 % (0.0-2.0); EOSINOPHILS % 2.6 % (0.0-5.0); HEMATOCRIT. 29.9 % (42.0-52.0); LYMPHOCYTES % 15.7 % (20.0-50.0); MEAN CORPUSCULAR HEMOGLOBIN 30.5 pg (28.0-32.0); MEAN CORPUSCULAR VOLUME 91.2 fL (80.0-94.0); MONOCYTES % 8.5 % (2.0-8.0); NEUTROPHILS % 72.7 % (40.0-76.0); PLATELET 219 x1000/uL (130-400); RED BLOOD CELL COUNT 3.28 mill/uL (4.7-6.1); RED CELL DISTRIBUTION WIDTH 15.2 % (11.6-14.6)
[2020-02-23 10:42] LABS: CHLORIDE 106 mEq/L (98-107)
[2020-02-23 10:54] LABS: LDL CHOLESTEROL 35 mg/dL (5-100); T4 FREE 1.02 ng/dL (0.76-1.46)
[2020-02-23 10:55] LABS: HDL CHOLESTEROL 68 mg/dL (40-59)
[2020-02-23] MEDS ORDERED: LEVOFLOXACIN 500MG PREMIX 100 ML IV SCH (11:00)
[2020-02-23 11:34] LABS: *BARBITURATES SCREEN URINE NEGATIVE (NEGATIVE); CANNABINOID URINE SCREEN NEGATIVE (NEGATIVE); OPIATES URINE SCREEN NEGATIVE (NEGATIVE)
[2020-02-23 11:35] LABS: *COCAINE SCREEN URINE NEGATIVE (NEGATIVE)
[2020-02-23 11:37] LABS: *BENZODIAZEPINES SCREEN URINE NEGATIVE (NEGATIVE)
[2020-02-23] MEDS: INSULIN GLARGINE UD 100 UNITS/ML SYR SUBCUT SCH (11:45)
[2020-02-23 11:47] LABS: METHADONE URINE SCREEN NEGATIVE (NEGATIVE)
[2020-02-23 11:49] LABS: *AMPHETAMINES SCREEN URINE NEGATIVE (NEGATIVE)
[2020-02-23 11:59] LABS: PHENCYCLIDINE URINE SCREEN NEGATIVE (NEGATIVE)
[2020-02-23 12:00] VITALS: BP 123/75
[2020-02-23] MEDS ORDERED: PNEUMOCOCCAL 23-VAL P-SAC VAC 0.5 ML IM ONE (12:00)
[2020-02-23] MEDS: AMLODIPINE 5MG TABLET PO SCH (14:00)
[2020-02-23] MEDS: HYDRALAZINE HCL 50MG TABLET PO SCH ×2 (14:00→21:36)
[2020-02-23 16:00] VITALS: BP 150/76
[2020-02-23 20:00] VITALS: BP 131/69
[2020-02-23] MEDS: FAMOTIDINE 20MG TABLET PO SCH (21:36)
[2020-02-24] VITALS (7 sets, daily range): BP systolic 124–183; BP diastolic 68–108
[2020-02-24] MEDS: HYDRALAZINE HCL 50MG TABLET PO SCH ×3 (06:03→21:27)
[2020-02-24] MEDS: BLOOD SUGAR DIAGNOSTIC STRIP TEST SCH ×4 (06:48→21:22)
[2020-02-24] MEDS: LOSARTAN POTASSIUM 50 MG TABLET PO SCH (09:25)
[2020-02-24] MEDS: CLOPIDOGREL 75MG TABLET PO SCH (09:25)
[2020-02-24] MEDS: AMLODIPINE 5MG TABLET PO SCH (09:26)
[2020-02-24] MEDS: INSULIN LISPRO 100 UNITS/ML SUBCUT SCH ×4 (09:34→21:34)
[2020-02-24 11:24] LABS: HEMOGLOBIN 10.3 g/dL (14.0-18.0); MEAN CORPUSCULAR HEMOGLOBIN 30.4 pg (28.0-32.0); MEAN CORPUSCULAR VOLUME 91.7 fL (80.0-94.0); PLATELET 233 x1000/uL (130-400); RED BLOOD CELL COUNT 3.38 mill/uL (4.7-6.1); RED CELL DISTRIBUTION WIDTH 14.8 % (11.6-14.6)
[2020-02-24] MEDS: INSULIN GLARGINE UD 100 UNITS/ML SYR SUBCUT SCH (12:54)
[2020-02-24] MEDS ORDERED: LOSARTAN POTASSIUM 50 MG TABLET PO SCH (14:45)
[2020-02-24] MEDS ORDERED: POTASSIUM CHLORIDE 20MEQ TABLET SR PO SCH (15:00)
[2020-02-24] MEDS ORDERED: LEVOFLOXACIN 250MG PREMIX 50 ML IV SCH (15:00)
[2020-02-24] MEDS: FAMOTIDINE 20MG TABLET PO SCH (21:27)
[2020-02-25] VITALS: BP 186/87
[2020-02-25 04:00] VITALS: BP 146/79
[2020-02-25] MEDS: HYDRALAZINE HCL 50MG TABLET PO SCH ×2 (05:45→13:11)
[2020-02-25] MEDS: BLOOD SUGAR DIAGNOSTIC STRIP TEST SCH ×3 (05:52→17:22)
[2020-02-25 06:18] LABS: HEMATOCRIT 28.7 % (42.0-52.0); HEMOGLOBIN 9.7 g/dL (14.0-18.0); MEAN CORPUSCULAR HEMOGLOBIN 30.7 pg (28.0-32.0); MEAN CORPUSCULAR VOLUME 90.8 fL (80.0-94.0); PLATELET 234 x1000/uL (130-400); RED BLOOD CELL COUNT 3.17 mill/uL (4.7-6.1); RED CELL DISTRIBUTION WIDTH 15.5 % (11.6-14.6)
[2020-02-25 08:00] VITALS: BP 155/82
[2020-02-25] MEDS ORDERED: AMLODIPINE 10MG TABLET PO SCH (09:00)
[2020-02-25] MEDS ORDERED: LOSARTAN POTASSIUM 100 MG TABLET PO SCH (09:00)
[2020-02-25] MEDS: CLOPIDOGREL 75MG TABLET PO SCH (10:00)
[2020-02-25] MEDS ORDERED: INSULIN GLARGINE UD 100 UNITS/ML SYR SUBCUT SCH (10:00)
[2020-02-25] MEDS: INSULIN LISPRO 100 UNITS/ML SUBCUT SCH ×3 (10:03→17:40)
[2020-02-25 12:00] VITALS: BP 129/72
[2020-02-25] MEDS ORDERED: LEVO500T2 PO (15:01)
[2020-02-25] MEDS ORDERED: HYDR-4135 MT (15:01)
[2020-02-25] MEDS ORDERED: AMLO10TA4 MT (15:01)
[2020-02-25] MEDS ORDERED: LOSA100T3 MT (15:01)
[2020-02-25] MEDS ORDERED: INSU100I28 SQ (15:01)
[2020-02-25] MEDS ORDERED: ALBU90AE INH (15:01)
[2020-02-25 16:00] VITALS: BP 133/69
[2020-02-25 17:31] VITALS: BP 133/69
[2020-02-26] MEDS ORDERED: LEVOFLOXACIN 250MG TABLET PO SCH (11:00)
== END 2020-02-25 19:00 | disposition home or self-care (01) | DRG 291 ==
LOC: ER 09:19 → 7WST 12:14 → EDBEDREQ 12:20 → ENRESERV 22:22 → 6WST 02-24 11:39
PROVIDERS: ADMIT Internal Medicine; ATTEND Internal Medicine
PROC: 5A1D70Z Performance of Urinary Filtration, Intermittent, Less than 6 Hours Per Day (ICD-10-PCS; principal; 2020-02-22)
PROC: 5A1D70Z Performance of Urinary Filtration, Intermittent, Less than 6 Hours Per Day (ICD-10-PCS; 2020-02-24)
DX: I13.2 Hypertensive heart and chronic kidney disease with heart failure and with stage 5 chronic kidney disease, or end stage renal disease (principal); J18.9 Pneumonia, unspecified organism; I50.33 Acute on chronic diastolic (congestive) heart failure; N18.6 End stage renal disease; E11.65 Type 2 diabetes mellitus with hyperglycemia; D63.1 Anemia in chronic kidney disease; E11.22 Type 2 diabetes mellitus with diabetic chronic kidney disease; E78.00 Pure hypercholesterolemia, unspecified; M16.12 Unilateral primary osteoarthritis, left hip; D64.9 Anemia, unspecified; E78.5 Hyperlipidemia, unspecified; Z79.02 Long term (current) use of antithrombotics/antiplatelets; Z79.4 Long term (current) use of insulin; Z79.899 Other long term (current) drug therapy; Z86.73 Personal history of transient ischemic attack (TIA), and cerebral infarction without residual deficits; Z91.19 Patient's noncompliance with other medical treatment and regimen; Z99.2 Dependence on renal dialysis; Z87.891 Personal history of nicotine dependence; Z95.5 Presence of coronary angioplasty implant and graft; Z03.818 Encounter for observation for suspected exposure to other biological agents ruled out
CPT/HCPCS: 36415; 36600; 71045; 73521; 80048; 80053; 80061; 80305; 81003; 82375; 82550; 82553; 82805; 82962; 83605; 83880; 84439; 84443; 84484; 85025; 85027; 87635; 90732; 93005; 96365; 97162; 99291; J0360; J1815; J1956; U0003-CS

== ENCOUNTER 2020-04-15 05:20 | Inpatient (IN) | payer MEDICARE, OTHER ==
[~2020-04-15] VITALS: Ht 170.2 cm; Wt 100.2 kg
[~2020-04-15 05:20] MED LIST changes: +ALBU90AE INH; +AMLO10TA4 MT; +HYDR-4135 MT; +INSU100I28 SQ; +LEVO500T2 PO; +LOSA100T3 MT
[2020-04-15] MEDS ORDERED: HYDRALAZINE 20MG/ML VIAL IV ONE (05:30)
[2020-04-15] MEDS ORDERED: AMLODIPINE 10MG TABLET PO ONE ×2 (05:30→09:30)
[2020-04-15 05:49] LABS: BASOPHILS % 0.7 % (0.0-2.0); EOSINOPHILS % 1.7 % (0.0-5.0); HEMATOCRIT. 29.8 % (42.0-52.0); HEMOGLOBIN. 9.9 g/dL (14.0-18.0); LYMPHOCYTES % 11.5 % (20.0-50.0); MEAN CORPUSCULAR HEMOGLOBIN 31.5 pg (28.0-32.0); MEAN CORPUSCULAR VOLUME 94.9 fL (80.0-94.0); MEAN PLATELET VOLUME 8.8 fl (7.4-10.4); MONOCYTES % 7.2 % (2.0-8.0); NEUTROPHILS % 78.9 % (40.0-76.0); PLATELET 236 x1000/uL (130-400); RED BLOOD CELL COUNT 3.14 mill/uL (4.7-6.1); RED CELL DISTRIBUTION WIDTH 15.6 % (11.6-14.6)
[2020-04-15 05:58] LABS: CHLORIDE 106 mEq/L (98-107)
[2020-04-15 06:05] LABS: ETHANOL BLOOD < 10 mg/dL
[2020-04-15] MEDS ORDERED: LACTULOSE 20G/30ML UDC PO ONE (06:30)
[2020-04-15 06:35] LABS: PROTHROMBIN TIME 10.4 sec (9.6-11.0)
[2020-04-15 06:50] LABS: CLARITY URINE CLEAR (CLEAR); COLOR URINE YELLOW (YELLOW); KETONES URINE NEGATIVE (NEGATIVE); LEUKOCYTE ESTERASE URINE NEGATIVE (NEGATIVE); NITRITE URINE NEGATIVE (NEGATIVE); OCCULT BLOOD URINE 1+ (NEGATIVE); PH URINE 6.5 (4.5-8.0); PROTEIN URINE 3+ (NEGATIVE); SPECIFIC GRAVITY URINE 1.017 (1.005-1.030); UROBILINOGEN URINE 0.2 E.U./dL (0.2-1.0)
[2020-04-15 07:08] LABS: *AMPHETAMINES SCREEN URINE NEGATIVE (NEGATIVE); *BARBITURATES SCREEN URINE NEGATIVE (NEGATIVE); *BENZODIAZEPINES SCREEN URINE NEGATIVE (NEGATIVE); *COCAINE SCREEN URINE NEGATIVE (NEGATIVE); CANNABINOID URINE SCREEN NEGATIVE (NEGATIVE); METHADONE URINE SCREEN NEGATIVE (NEGATIVE); OPIATES URINE SCREEN PRESUMTIVE POSITIVE (NEGATIVE); PHENCYCLIDINE URINE SCREEN NEGATIVE (NEGATIVE)
[2020-04-15 08:30] VITALS: BP 195/92
[2020-04-15] MEDS ORDERED: ONDANSETRON HCL 4MG/2ML INJ IV PRN (09:30)
[2020-04-15] MEDS: BLOOD SUGAR DIAGNOSTIC STRIP TEST SCH ×4 (09:57→21:22)
[2020-04-15] MEDS: HYDRALAZINE HCL 100MG TABLET PO SCH ×3 (10:02→22:00)
[2020-04-15] MEDS: HEPARIN 5000 UNITS/ML VIAL SUBCUT SCH ×2 (10:02→23:07)
[2020-04-15] MEDS: INSULIN LISPRO 100 UNITS/ML SUBCUT SCH ×4 (10:06→21:00)
[2020-04-15] MEDS: INSULIN GLARGINE UD 100 UNITS/ML SYR SUBCUT SCH ×2 (10:44→23:08)
[2020-04-15] MEDS: LORAZEPAM 2MG/ML CPJ IV PRN (11:14)
[2020-04-15 12:00] VITALS: BP 140/76
[2020-04-15 16:00] VITALS: BP 155/95
[2020-04-15 20:00] VITALS: BP 130/53
[2020-04-16] VITALS: BP 119/77
[2020-04-16 04:00] VITALS: BP 104/66
[2020-04-16] MEDS: HYDRALAZINE HCL 100MG TABLET PO SCH ×3 (06:00→22:14)
[2020-04-16] MEDS: DEXTROSE 50% WATER 50ML SYRINGE IV PRN (06:16)
[2020-04-16] MEDS: BLOOD SUGAR DIAGNOSTIC STRIP TEST SCH ×4 (07:08→21:02)
[2020-04-16] MEDS: INSULIN LISPRO 100 UNITS/ML SUBCUT SCH ×4 (07:09→21:00)
[2020-04-16 07:15] LABS: BASOPHILS % 0.9 % (0.0-2.0); EOSINOPHILS % 1.1 % (0.0-5.0); HEMATOCRIT. 30.3 % (42.0-52.0); HEMOGLOBIN. 10.1 g/dL (14.0-18.0); LYMPHOCYTES % 11.6 % (20.0-50.0); MEAN CORPUSCULAR HEMOGLOBIN 31.3 pg (28.0-32.0); MEAN CORPUSCULAR VOLUME 93.9 fL (80.0-94.0); MONOCYTES % 5.9 % (2.0-8.0); NEUTROPHILS % 80.5 % (40.0-76.0); RED BLOOD CELL COUNT 3.23 mill/uL (4.7-6.1); RED CELL DISTRIBUTION WIDTH 15.7 % (11.6-14.6)
[2020-04-16 08:00] VITALS: BP 169/86
[2020-04-16] MEDS: AMLODIPINE 10MG TABLET PO SCH (09:05)
[2020-04-16] MEDS: LORAZEPAM 2MG/ML CPJ IV PRN (09:05)
[2020-04-16] MEDS: HEPARIN 5000 UNITS/ML VIAL SUBCUT SCH ×2 (09:05→22:14)
[2020-04-16 09:32] LABS: PLATELET 200 x1000/uL (130-400)
[2020-04-16] MEDS: INSULIN GLARGINE UD 100 UNITS/ML SYR SUBCUT SCH ×2 (10:15→22:43)
[2020-04-16 12:00] VITALS: BP 169/76
[2020-04-16 16:00] VITALS: BP 141/75
[2020-04-16] MEDS ORDERED: POTASSIUM CHLORIDE 20MEQ TABLET SR PO NR (16:00)
[2020-04-16 20:00] VITALS: BP 153/102
[2020-04-16] MEDS: ASPIRIN 81MG TABLET PO SCH (23:33)
[2020-04-16] MEDS: ATORVASTATIN CALCIUM 20MG TABLET PO SCH (23:34)
[2020-04-17] VITALS (7 sets, daily range): BP systolic 122–186; BP diastolic 58–91
[2020-04-17] MEDS: CLONIDINE 0.1MG TABLET PO PRN (01:19)
[2020-04-17] MEDS: LORAZEPAM 2MG/ML CPJ IV PRN (05:02)
[2020-04-17] MEDS: DEXTROSE 50% WATER 50ML SYRINGE IV PRN ×2 (05:52→10:27)
[2020-04-17] MEDS: BLOOD SUGAR DIAGNOSTIC STRIP TEST SCH ×4 (06:00→21:14)
[2020-04-17] MEDS: HYDRALAZINE HCL 100MG TABLET PO SCH ×3 (06:00→21:21)
[2020-04-17] MEDS: INSULIN LISPRO 100 UNITS/ML SUBCUT SCH ×4 (06:33→21:00)
[2020-04-17 06:35] LABS: BASOPHILS % 0.6 % (0.0-2.0); EOSINOPHILS % 0.9 % (0.0-5.0); HEMATOCRIT. 27.6 % (42.0-52.0); HEMOGLOBIN. 9.2 g/dL (14.0-18.0); MEAN CORPUSCULAR HEMOGLOBIN 31.3 pg (28.0-32.0); MEAN CORPUSCULAR VOLUME 93.5 fL (80.0-94.0); MEAN PLATELET VOLUME 8.9 fl (7.4-10.4); MONOCYTES % 6.4 % (2.0-8.0); NEUTROPHILS % 79.1 % (40.0-76.0); PLATELET 226 x1000/uL (130-400); RED BLOOD CELL COUNT 2.95 mill/uL (4.7-6.1); RED CELL DISTRIBUTION WIDTH 15.8 % (11.6-14.6)
[2020-04-17] MEDS: HEPARIN 5000 UNITS/ML VIAL SUBCUT SCH ×2 (08:50→21:21)
[2020-04-17] MEDS: ASPIRIN 81MG TABLET PO SCH (09:52)
[2020-04-17] MEDS: INSULIN GLARGINE UD 100 UNITS/ML SYR SUBCUT SCH (10:00)
[2020-04-17] MEDS: AMLODIPINE 10MG TABLET PO SCH (13:17)
[2020-04-17] MEDS: DEXT 5%/0.45% NACL 1000ML 1,000 ML IV SCH (13:18)
[2020-04-17 14:03] LABS: BG CARBOXYHEMOGLOBIN 0.3 % (0.5-1.5); BG DEOXYHEMOGLOBIN 10.2 % (0.0-5.0); BG FRACTION INSPIRED OXYGEN 21; BG HCO3 ACT 25.8 mmol/L (22.0-26.0); BG OXYGEN SATURATION 89.8 % (92.0-98.5); BG OXYHEMOGLOBIN 89.5 % (94.0-97.0); BG PCO2 52.7 mmHg (35.0-45.0); BG PH 7.307 (7.350-7.450); BG PO2 61.6 mmHg (75.0-100.0); BG SAMPLE SITE RIGHT RADIAL; BG TOTAL HEMOGLOBIN 10.8 g/dL (12.0-18.0); BG VENT MODE ROOM AIR
[2020-04-17 18:40] LABS: CREATINE KINASE 234 IU/L (39-308)
[2020-04-17 18:41] LABS: CREATINE KINASE MB FRACTION 2.7 ng/mL (0.5-3.6)
[2020-04-17] MEDS: FAMOTIDINE 20MG TABLET PO SCH (21:21)
[2020-04-17] MEDS: ATORVASTATIN CALCIUM 20MG TABLET PO SCH (21:21)
[2020-04-18] VITALS: BP 156/76
[2020-04-18] MEDS: LORAZEPAM 2MG/ML CPJ IV PRN (01:54)
[2020-04-18 04:00] VITALS: BP 175/47
[2020-04-18] MEDS: INSULIN LISPRO 100 UNITS/ML SUBCUT SCH ×4 (05:38→21:00)
[2020-04-18] MEDS: BLOOD SUGAR DIAGNOSTIC STRIP TEST SCH ×4 (05:38→21:04)
[2020-04-18] MEDS: CLONIDINE 0.1MG TABLET PO PRN (06:04)
[2020-04-18] MEDS: HYDRALAZINE HCL 100MG TABLET PO SCH ×3 (06:04→21:04)
[2020-04-18 06:40] LABS: BASOPHILS % 0.9 % (0.0-2.0); EOSINOPHILS % 1.8 % (0.0-5.0); HEMATOCRIT. 28.2 % (42.0-52.0); HEMOGLOBIN. 9.4 g/dL (14.0-18.0); LYMPHOCYTES % 16.9 % (20.0-50.0); MEAN CORPUSCULAR VOLUME 93.8 fL (80.0-94.0); MEAN PLATELET VOLUME 9.1 fl (7.4-10.4); MONOCYTES % 7.8 % (2.0-8.0); NEUTROPHILS % 72.6 % (40.0-76.0); PLATELET 227 x1000/uL (130-400); RED BLOOD CELL COUNT 3.01 mill/uL (4.7-6.1); RED CELL DISTRIBUTION WIDTH 15.9 % (11.6-14.6)
[2020-04-18 07:03] LABS: CHLORIDE 107 mEq/L (98-107)
[2020-04-18 08:00] VITALS: BP 171/85
[2020-04-18] MEDS: AMLODIPINE 10MG TABLET PO SCH (10:46)
[2020-04-18] MEDS: ASPIRIN 81MG TABLET PO SCH (10:46)
[2020-04-18] MEDS: HEPARIN 5000 UNITS/ML VIAL SUBCUT SCH ×2 (10:48→21:03)
[2020-04-18] MEDS: DEXT 5%/0.45% NACL 1000ML 1,000 ML IV SCH (10:49)
[2020-04-18 12:00] VITALS: BP 165/89
[2020-04-18] MEDS ORDERED: GLIP5TAB12 PO (14:32)
[2020-04-18 15:04] LABS: BG BASE EXCESS -4.3 mmol/L (-2.0-2.0); BG CARBOXYHEMOGLOBIN 0.3 % (0.5-1.5); BG DEOXYHEMOGLOBIN 3.9 % (0.0-5.0); BG FRACTION INSPIRED OXYGEN 21; BG HCO3 ACT 21.6 mmol/L (22.0-26.0); BG METHEMOGLOBIN 0.4 % (0.0-1.5); BG OXYGEN SATURATION 96.1 % (92.0-98.5); BG OXYHEMOGLOBIN 95.4 % (94.0-97.0); BG PCO2 42.8 mmHg (35.0-45.0); BG PO2 91.4 mmHg (75.0-100.0); BG SAMPLE SITE RIGHT RADIAL; BG TOTAL HEMOGLOBIN 10.7 g/dL (12.0-18.0); BG VENT MODE ROOM AIR
[2020-04-18 16:00] VITALS: BP 139/72
[2020-04-18 20:00] VITALS: BP 153/27
[2020-04-18] MEDS ORDERED: EPOETIN ALFA 10000UNITS/ML VIAL SUBCUT SCH (21:00)
[2020-04-18] MEDS: FAMOTIDINE 20MG TABLET PO SCH (21:04)
[2020-04-18] MEDS: ATORVASTATIN CALCIUM 20MG TABLET PO SCH (21:04)
[2020-04-18] MEDS: ACETAMINOPHEN 325MG TABLET PO PRN (23:29)
[2020-04-19] VITALS: BP 138/68
[2020-04-19 04:00] VITALS: BP 136/65
[2020-04-19] MEDS: BLOOD SUGAR DIAGNOSTIC STRIP TEST SCH ×4 (06:17→21:30)
[2020-04-19] MEDS: INSULIN LISPRO 100 UNITS/ML SUBCUT SCH ×4 (06:18→21:53)
[2020-04-19 06:29] LABS: HEMATOCRIT 27.3 % (42.0-52.0); HEMOGLOBIN 9.1 g/dL (14.0-18.0); MEAN CORPUSCULAR HEMOGLOBIN 31.2 pg (28.0-32.0); MEAN CORPUSCULAR VOLUME 93.7 fL (80.0-94.0); PLATELET 196 x1000/uL (130-400); RED BLOOD CELL COUNT 2.91 mill/uL (4.7-6.1)
[2020-04-19] MEDS: HYDRALAZINE HCL 100MG TABLET PO SCH ×3 (06:37→21:29)
[2020-04-19] MEDS: ACETAMINOPHEN 325MG TABLET PO PRN ×2 (06:37→13:49)
[2020-04-19 08:00] VITALS: BP 130/70
[2020-04-19] MEDS: ASPIRIN 81MG TABLET PO SCH (09:32)
[2020-04-19] MEDS: AMLODIPINE 10MG TABLET PO SCH (09:32)
[2020-04-19] MEDS: HEPARIN 5000 UNITS/ML VIAL SUBCUT SCH ×2 (09:33→21:30)
[2020-04-19 12:00] VITALS: BP 130/85
[2020-04-19] MEDS ORDERED: LORAZEPAM 2MG/ML CPJ IV PRN (15:00)
[2020-04-19 16:00] VITALS: BP_SYST 109; BP_SYST 152; BP_DIAS 60; BP_DIAS 89
[2020-04-19 20:00] VITALS: BP 128/58
[2020-04-19] MEDS: FAMOTIDINE 20MG TABLET PO SCH (21:29)
[2020-04-19] MEDS: ATORVASTATIN CALCIUM 20MG TABLET PO SCH (21:29)
[2020-04-20] VITALS: BP 152/71
[2020-04-20 04:00] VITALS: BP 147/84
[2020-04-20] MEDS: HYDRALAZINE HCL 100MG TABLET PO SCH ×2 (05:50→13:54)
[2020-04-20] MEDS: BLOOD SUGAR DIAGNOSTIC STRIP TEST SCH ×3 (05:50→17:08)
[2020-04-20] MEDS: ACETAMINOPHEN 325MG TABLET PO PRN ×2 (06:00→16:06)
[2020-04-20 06:16] LABS: HEMOGLOBIN 9.4 g/dL (14.0-18.0); MEAN CORPUSCULAR HEMOGLOBIN 31.5 pg (28.0-32.0); MEAN CORPUSCULAR VOLUME 93.7 fL (80.0-94.0); PLATELET 202 x1000/uL (130-400); RED BLOOD CELL COUNT 2.99 mill/uL (4.7-6.1); RED CELL DISTRIBUTION WIDTH 15.7 % (11.6-14.6)
[2020-04-20] MEDS: INSULIN LISPRO 100 UNITS/ML SUBCUT SCH ×3 (06:20→17:11)
[2020-04-20] MEDS: ASPIRIN 81MG TABLET PO SCH (09:17)
[2020-04-20] MEDS: AMLODIPINE 10MG TABLET PO SCH (09:18)
[2020-04-20] MEDS: HEPARIN 5000 UNITS/ML VIAL SUBCUT SCH (09:18)
[2020-04-20 12:00] VITALS: BP 164/68
[2020-04-20] MEDS ORDERED: ATOR10TA MT (15:39)
[2020-04-20] MEDS ORDERED: LANC1COM2 MC (15:39)
[2020-04-20] MEDS ORDERED: HYDR100T26 MT (15:39)
[2020-04-20] MEDS ORDERED: BLOO-1465 MT (15:39)
[2020-04-20] MEDS ORDERED: ASPI-1497 MT (15:39)
[2020-04-20] MEDS ORDERED: AMLO10TA4 MT (15:39)
[2020-04-20] MEDS ORDERED: ALBU90AE INH (15:39)
[2020-04-20] MEDS ORDERED: CLOP75TA4 MT (15:39)
[2020-04-20 16:00] VITALS: BP 136/66
[2020-04-20 17:58] VITALS: BP 136/66
== END 2020-04-20 21:06 | disposition home health service (06) | DRG 91 ==
LOC: ER 05:20 → 5WST 07:08 → ENRESERV 07:27
PROVIDERS: ADMIT Internal Medicine; ATTEND Internal Medicine
PROC: 5A1D70Z Performance of Urinary Filtration, Intermittent, Less than 6 Hours Per Day (ICD-10-PCS; principal; 2020-04-15)
PROC: 5A1D70Z Performance of Urinary Filtration, Intermittent, Less than 6 Hours Per Day (ICD-10-PCS; 2020-04-18)
PROC: 5A1D70Z Performance of Urinary Filtration, Intermittent, Less than 6 Hours Per Day (ICD-10-PCS; 2020-04-20)
DX: G92 Toxic encephalopathy (principal); N18.6 End stage renal disease; I50.33 Acute on chronic diastolic (congestive) heart failure; I13.2 Hypertensive heart and chronic kidney disease with heart failure and with stage 5 chronic kidney disease, or end stage renal disease; E72.20 Disorder of urea cycle metabolism, unspecified; E11.22 Type 2 diabetes mellitus with diabetic chronic kidney disease; I16.0 Hypertensive urgency; E66.01 Morbid (severe) obesity due to excess calories; E11.649 Type 2 diabetes mellitus with hypoglycemia without coma; E78.5 Hyperlipidemia, unspecified; W18.39XA Other fall on same level, initial encounter; D64.9 Anemia, unspecified; I25.10 Atherosclerotic heart disease of native coronary artery without angina pectoris; Z95.5 Presence of coronary angioplasty implant and graft; Z99.2 Dependence on renal dialysis; Y93.89 Activity, other specified; Y92.89 Other specified places as the place of occurrence of the external cause; Y99.8 Other external cause status; Z86.73 Personal history of transient ischemic attack (TIA), and cerebral infarction without residual deficits; Z79.2 Long term (current) use of antibiotics; Z79.4 Long term (current) use of insulin; Z79.899 Other long term (current) drug therapy; Z78.1 Physical restraint status; Z68.34 Body mass index [BMI] 34.0-34.9, adult
CPT/HCPCS: 36415; 36600; 70551; 71045; 80048; 80053; 80305; 80320; 81003; 82140; 82375; 82550; 82553; 82805; 82962; 83036; 83880; 84145; 84443; 84484; 85025; 85027; 86850; 86900; 92610; 93005; 97116; 97162; 97535; 99291; J0360; J0885; J1644; J1815; J2060; G0480

== ENCOUNTER 2021-08-02 19:34 | Emergency (ER) | payer OTHER ==
[~2021-08-02] VITALS: Ht 172.7 cm; Wt 95.0 kg
[~2021-08-02 19:34] MED LIST changes: +ASPI-1497 MT; +ATOR10TA MT; +BLOO-1465 MT; +CLOP-31 MT; -CLOP75TA4 MT; +GLIP5TAB12 PO; +HYDR100T26 MT; -INSU100I28 SQ; +LANC1COM2 MC; -LEVO500T2 PO
[2021-08-02] MEDS ORDERED: ACETAMINOPHEN 325MG TABLET PO STA (20:06)
[2021-08-02] MEDS ORDERED: SODIUM CHLORIDE 0.9% 1,000 ML IV ONE (20:15)
[2021-08-02 20:51] LABS: BASOPHILS % 1.1 % (0.0-2.0); EOSINOPHILS % 0.7 % (0.0-5.0); HEMATOCRIT. 24.4 % (42.0-52.0); HEMOGLOBIN. 8.2 g/dL (14.0-18.0); LYMPHOCYTES % 9.7 % (20.0-50.0); MEAN CORPUSCULAR HEMOGLOBIN 31.8 pg (28.0-32.0); MEAN CORPUSCULAR VOLUME 94.6 fL (80.0-94.0); MEAN PLATELET VOLUME 8.2 fl (7.4-10.4); MONOCYTES % 7.2 % (2.0-8.0); NEUTROPHILS % 81.3 % (40.0-76.0); PLATELET 293 x1000/uL (130-400); RED BLOOD CELL COUNT 2.58 mill/uL (4.7-6.1); RED CELL DISTRIBUTION WIDTH 14.7 % (11.6-14.6)
[2021-08-02 20:56] LABS: CHLORIDE 101 mEq/L (98-107)
[2021-08-02 22:40] VITALS: BP 187/90
== END 2021-08-02 23:06 | disposition home or self-care (01) ==
LOC: ER 19:34
DX: R51.9 Headache, unspecified (principal); I12.9 Hypertensive chronic kidney disease with stage 1 through stage 4 chronic kidney disease, or unspecified chronic kidney disease; N18.9 Chronic kidney disease, unspecified; E11.9 Type 2 diabetes mellitus without complications; Z98.42 Cataract extraction status, left eye; Z79.82 Long term (current) use of aspirin
CPT/HCPCS: 36415; 70450; 80053; 85025; 99284; J7030

== ENCOUNTER 2021-08-29 00:38 | Inpatient (IN) | payer OTHER ==
[~2021-08-29] VITALS: Ht 167.6 cm; Wt 78.9 kg
[2021-08-29 01:42] LABS: HEMATOCRIT. 26.9 % (42.0-52.0); HEMOGLOBIN. 8.5 g/dL (14.0-18.0); MEAN CORPUSCULAR HEMOGLOBIN 30.6 pg (28.0-32.0); MEAN CORPUSCULAR VOLUME 96.8 fL (80.0-94.0); MEAN PLATELET VOLUME 9.1 fl (7.4-10.4); PLATELET 220 x1000/uL (130-400); RED BLOOD CELL COUNT 2.78 mill/uL (4.7-6.1); RED CELL DISTRIBUTION WIDTH 16.3 % (11.6-14.6)
[2021-08-29 01:51] LABS: CHLORIDE 104 mEq/L (98-107)
[2021-08-29 01:58] LABS: ETHANOL BLOOD < 10 mg/dL
[2021-08-29 02:19] LABS: PLATELET ESTIMATE NORMAL
[2021-08-29] MEDS ORDERED: PIPERACILLIN/TAZOBACTAM 3.375GM/50ML PREMIX IV ONE (02:30)
[2021-08-29] MEDS ORDERED: PIPERACILLIN/TAZ 3.375G PREMIX 50 ML IV NR (02:45)
[2021-08-29] MEDS ORDERED: VANCOMYCIN 1 G PREMIX 200 ML IV NR (03:00)
[2021-08-29 08:40] LABS: CLARITY URINE CLEAR (CLEAR); COLOR URINE YELLOW (YELLOW); KETONES URINE NEGATIVE (NEGATIVE); LEUKOCYTE ESTERASE URINE NEGATIVE (NEGATIVE); NITRITE URINE NEGATIVE (NEGATIVE); OCCULT BLOOD URINE 1+ (NEGATIVE); PH URINE 6.5 (4.5-8.0); PROTEIN URINE 4+ (NEGATIVE); SPECIFIC GRAVITY URINE 1.022 (1.005-1.030)
[2021-08-29] MEDS ORDERED: ACETAMINOPHEN 650MG SUPP PR PRN (11:00)
[2021-08-29] MEDS ORDERED: ONDANSETRON HCL 4MG/2ML INJ IV PRN (11:00)
[2021-08-29] MEDS ORDERED: DOCUSATE SODIUM 100MG CAPSULE PO PRN (11:00)
[2021-08-29] MEDS ORDERED: DEXTROSE 50% WATER 50ML SYRINGE IV PRN (11:00)
[2021-08-29] MEDS ORDERED: HYDROCODONE/ACETAMINOPHEN 5/325MG TABLET PO PRN (11:00)
[2021-08-29] MEDS ORDERED: MAGNESIUM/ALUMINUM HYDROXIDE/SIMETHICONE 30ML UDC PO PRN (11:00)
[2021-08-29] MEDS ORDERED: LORAZEPAM 0.5MG TABLET PO PRN (11:00)
[2021-08-29] MEDS ORDERED: DIPHENHYDRAMINE 50MG/ML VIAL IV PRN (11:00)
[2021-08-29] MEDS ORDERED: IPRATROPIUM/ALBUTEROL 0.5-3(2.5)MG/3ML NEB NEB PRN (11:00)
[2021-08-29] MEDS ORDERED: GUAIFENESIN 200MG/10ML SUGAR FREE UDC PO PRN (11:00)
[2021-08-29] MEDS ORDERED: ACETAMINOPHEN 325MG TABLET PO PRN (11:00)
[2021-08-29] MEDS: BLOOD SUGAR DIAGNOSTIC STRIP TEST SCH ×3 (11:40→21:46)
[2021-08-29 12:00] VITALS: BP 154/73
[2021-08-29] MEDS: DEXT 5%/0.45% NACL 1000ML 1,000 ML IV SCH (12:44)
[2021-08-29] MEDS ORDERED: VANCOMYCIN 1 G PREMIX 200 ML IV SCH (13:00)
[2021-08-29] MEDS: CEFTRIAXONE 1,000 MG in DEXTROSE 5% WATER 50 ML IV SCH (14:55)
[2021-08-29 16:00] VITALS: BP 158/75
[2021-08-29 16:34] LABS: HEMATOCRIT. 26.4 % (42.0-52.0); HEMOGLOBIN. 8.5 g/dL (14.0-18.0); MEAN CORPUSCULAR HEMOGLOBIN 29.6 pg (28.0-32.0); MEAN CORPUSCULAR VOLUME 92.4 fL (80.0-94.0); PLATELET 234 x1000/uL (130-400); RED BLOOD CELL COUNT 2.86 mill/uL (4.7-6.1)
[2021-08-29 16:39] LABS: CHLORIDE 103 mEq/L (98-107); INR 1.3
[2021-08-29 16:47] LABS: CREATINE KINASE MB FRACTION 4.4 ng/mL (0.5-3.6)
[2021-08-29 17:06] LABS: HEPATITIS B SURFACE ANTIGEN NEGATIVE
[2021-08-29 17:23] LABS: PLATELET ESTIMATE NORMAL
[2021-08-29 19:03] VITALS: BP 158/92
[2021-08-29 20:00] VITALS: BP 106/73
[2021-08-29 20:22] LABS: CLARITY URINE CLEAR (CLEAR); COLOR URINE YELLOW (YELLOW); KETONES URINE NEGATIVE (NEGATIVE); LEUKOCYTE ESTERASE URINE NEGATIVE (NEGATIVE); NITRITE URINE NEGATIVE (NEGATIVE); OCCULT BLOOD URINE 1+ (NEGATIVE); PROTEIN URINE 4+ (NEGATIVE)
[2021-08-29 21:01] LABS: *AMPHETAMINES SCREEN URINE NEGATIVE (NEGATIVE); *BARBITURATES SCREEN URINE NEGATIVE (NEGATIVE); *BENZODIAZEPINES SCREEN URINE NEGATIVE (NEGATIVE); CANNABINOID URINE SCREEN NEGATIVE (NEGATIVE); METHADONE URINE SCREEN NEGATIVE (NEGATIVE); OPIATES URINE SCREEN NEGATIVE (NEGATIVE); PHENCYCLIDINE URINE SCREEN NEGATIVE (NEGATIVE)
[2021-08-29 21:04] LABS: *COCAINE SCREEN URINE NEGATIVE (NEGATIVE)
[2021-08-29] MEDS: FAMOTIDINE 20MG TABLET PO SCH (21:46)
[2021-08-30] VITALS (8 sets, daily range): BP systolic 106–144; BP diastolic 63–85
[2021-08-30 01:24] LABS: CREATINE KINASE MB FRACTION 3.2 ng/mL (0.5-3.6)
[2021-08-30] MEDS: BLOOD SUGAR DIAGNOSTIC STRIP TEST SCH ×4 (07:10→21:18)
[2021-08-30 07:18] LABS: HEMATOCRIT. 26.6 % (42.0-52.0); HEMOGLOBIN. 8.7 g/dL (14.0-18.0); MEAN CORPUSCULAR HEMOGLOBIN 30.1 pg (28.0-32.0); MEAN CORPUSCULAR VOLUME 92.4 fL (80.0-94.0); MEAN PLATELET VOLUME 9.1 fl (7.4-10.4); PLATELET 248 x1000/uL (130-400); RED BLOOD CELL COUNT 2.88 mill/uL (4.7-6.1); RED CELL DISTRIBUTION WIDTH 15.8 % (11.6-14.6)
[2021-08-30 07:23] LABS: CHLORIDE 102 mEq/L (98-107)
[2021-08-30 07:42] LABS: LDL CHOLESTEROL 33 mg/dL (5-100); T4 FREE 1.11 ng/dL (0.76-1.46)
[2021-08-30 07:43] LABS: HDL CHOLESTEROL 52 mg/dL (40-59)
[2021-08-30] MEDS ORDERED: HEPARIN SODIUM 1,000 UNIT/1ML VIAL IV ONE (07:59)
[2021-08-30] MEDS ORDERED: IOHEXOL-350 100 ML BOTTLE ONE (09:36)
[2021-08-30] MEDS: CEFTRIAXONE 1,000 MG in DEXTROSE 5% WATER 50 ML IV SCH (11:05)
[2021-08-30 12:05] LABS: PLATELET ESTIMATE NORMAL
[2021-08-30] MEDS ORDERED: LIDOCAINE HCL 1% 10 MG/ML 10ML VIAL ONE (15:13)
[2021-08-30] MEDS ORDERED: IODIXANOL 320MG/ML 100 ML BOTTLE IV ONE (15:20)
[2021-08-30] MEDS ORDERED: FENTANYL CITRATE/PF 50MCG/ML 2ML VIAL ONE (15:28)
[2021-08-30] MEDS ORDERED: MIDAZOLAM HCL 2 MG/2 ML VIAL ONE (15:28)
[2021-08-30] MEDS ORDERED: IOHEXOL-300 100 ML BOTTLE ONE (16:11)
[2021-08-30] MEDS ORDERED: ATROPINE SULFATE 1MG/10ML SYR IV PRN (16:45)
[2021-08-30] MEDS ORDERED: ONDANSETRON HCL 4MG/2ML INJ IV PRN (16:45)
[2021-08-30] MEDS ORDERED: ASPIRIN 325MG TABLET ONE (16:46)
[2021-08-30] MEDS: FAMOTIDINE 20MG TABLET PO SCH (21:43)
[2021-08-30] MEDS: EPOETIN ALFA-EPBX 10,000 UNIT/ML VIAL SUBCUT SCH (21:44)
[2021-08-30] MEDS: DEXT 5%/0.45% NACL 1000ML 1,000 ML IV SCH (22:28)
[2021-08-31] VITALS (9 sets, daily range): BP systolic 125–164; BP diastolic 66–89
[2021-08-31] MEDS: DEXT 5%/0.45% NACL 1000ML 1,000 ML IV SCH (03:42)
[2021-08-31] MEDS: CLONIDINE 0.1MG TABLET PO PRN (04:45)
[2021-08-31] MEDS: BLOOD SUGAR DIAGNOSTIC STRIP TEST SCH ×4 (06:10→20:39)
[2021-08-31] MEDS ORDERED: LIDOCAINE HCL 1% 20ML VIAL (Pyxis) INJ ONE (07:41)
[2021-08-31] MEDS ORDERED: VANCOMYCIN HCL 1 GM/VIAL ONE (07:42)
[2021-08-31] MEDS ORDERED: POLYMYXIN B SULFATE 500000 UNITS/VIAL ONE (07:42)
[2021-08-31] MEDS ORDERED: BUPIVACAINE HCL/PF 0.5% (5MG/ML) 10ML ONE (07:42)
[2021-08-31] MEDS: CEFTRIAXONE 1,000 MG in DEXTROSE 5% WATER 50 ML IV SCH (08:46)
[2021-08-31] MEDS: ASPIRIN 325MG TABLET PO SCH (09:00)
[2021-08-31] MEDS ORDERED: ACETAMINOPHEN 500MG TABLET ONE (10:22)
[2021-08-31] MEDS ORDERED: PHENYLEPHRINE HCL 10 MG/ML 1ML (IV VIAL) IV ONE (11:58)
[2021-08-31] MEDS ORDERED: LIDOCAINE HCL 2% JELLY 5ML ONE (11:59)
[2021-08-31] MEDS ORDERED: BACITRACIN 15GM TUBE TOP ONE (12:24)
[2021-08-31] MEDS ORDERED: PROPOFOL 10MG/ML 100ML 0 ML IV ONE (12:59)
[2021-08-31] MEDS ORDERED: PROPOFOL 10MG/ML 100ML 100 ML IV ONE (12:59)
[2021-08-31] MEDS ORDERED: HALOPERIDOL LACTATE 5MG/ML VIAL IM NR (13:00)
[2021-08-31] MEDS ORDERED: PROPOFOL 10MG/ML 100ML 100 ML IV PRN (13:45)
[2021-08-31 14:36] LABS: BG BASE EXCESS 1.2 mmol/L (-2.0-2.0); BG CARBOXYHEMOGLOBIN 0.3 % (0.5-1.5); BG DEOXYHEMOGLOBIN 2.3 % (0.0-5.0); BG FRACTION INSPIRED OXYGEN 32; BG HCO3 ACT 26.9 mmol/L (22.0-26.0); BG METHEMOGLOBIN 0.3 % (0.0-1.5); BG OXYGEN SATURATION 97.7 % (92.0-98.5); BG OXYHEMOGLOBIN 97.1 % (94.0-97.0); BG PCO2 48.4 mmHg (35.0-45.0); BG PH 7.363 (7.350-7.450); BG PO2 111.4 mmHg (75.0-100.0); BG SAMPLE SITE RIGHT BRACHIAL; BG VENT MODE NASAL CANNULA
[2021-08-31] MEDS: AMLODIPINE 5MG TABLET PO SCH ×2 (17:05→20:27)
[2021-08-31 17:18] LABS: HEMATOCRIT. 25.8 % (42.0-52.0); HEMOGLOBIN. 8.3 g/dL (14.0-18.0); MEAN CORPUSCULAR HEMOGLOBIN 30.9 pg (28.0-32.0); MEAN CORPUSCULAR VOLUME 96.1 fL (80.0-94.0); MEAN PLATELET VOLUME 8.8 fl (7.4-10.4); PLATELET 250 x1000/uL (130-400); RED BLOOD CELL COUNT 2.69 mill/uL (4.7-6.1); RED CELL DISTRIBUTION WIDTH 16.3 % (11.6-14.6)
[2021-08-31 17:39] LABS: CREATINE KINASE MB FRACTION 3.9 ng/mL (0.5-3.6)
[2021-08-31 18:24] LABS: PLATELET ESTIMATE NORMAL
[2021-08-31] MEDS: FAMOTIDINE 20MG TABLET PO SCH (20:26)
[2021-08-31 21:28] LABS: HEPATITIS B SURFACE ANTIGEN NEGATIVE
[2021-08-31] MEDS: HALOPERIDOL LACTATE 5MG/ML VIAL IM PRN (22:52)
[2021-09-01] VITALS (12 sets, daily range): BP systolic 116–169; BP diastolic 55–97
[2021-09-01] MEDS: DEXT 5%/0.45% NACL 1000ML 1,000 ML IV SCH (01:11)
[2021-09-01] MEDS: CLONIDINE 0.1MG TABLET PO PRN (04:13)
[2021-09-01] MEDS ORDERED: LORAZEPAM 2MG/ML CPJ IV PRN (05:00)
[2021-09-01] MEDS ORDERED: HALOPERIDOL LACTATE 5MG/ML VIAL IM SCH (05:00)
[2021-09-01] MEDS: BLOOD SUGAR DIAGNOSTIC STRIP TEST SCH ×2 (06:02→12:16)
[2021-09-01] MEDS: ASPIRIN 325MG TABLET PO SCH (08:29)
[2021-09-01] MEDS: CEFTRIAXONE 1,000 MG in DEXTROSE 5% WATER 50 ML IV SCH (08:30)
[2021-09-01] MEDS: AMLODIPINE 5MG TABLET PO SCH ×2 (08:31→21:24)
[2021-09-01] MEDS: LACTULOSE 20G/30ML UDC PO SCH ×2 (13:43→21:24)
[2021-09-01] MEDS ORDERED: VANCOMYCIN 1 G PREMIX 200 ML IV NR (21:00)
[2021-09-01] MEDS: FAMOTIDINE 20MG TABLET PO SCH (21:22)
[2021-09-01] MEDS: EPOETIN ALFA-EPBX 10,000 UNIT/ML VIAL SUBCUT SCH (21:24)
[2021-09-02] VITALS (13 sets, daily range): BP systolic 112–169; BP diastolic 61–140
[2021-09-02] MEDS: LACTULOSE 20G/30ML UDC PO SCH (05:42)
[2021-09-02] MEDS: BLOOD SUGAR DIAGNOSTIC STRIP TEST SCH ×4 (05:55→20:25)
[2021-09-02 07:18] LABS: BASOPHILS % 0.8 % (0.0-2.0); EOSINOPHILS % 0.9 % (0.0-5.0); HEMATOCRIT. 24.5 % (42.0-52.0); LYMPHOCYTES % 7.1 % (20.0-50.0); MEAN CORPUSCULAR HEMOGLOBIN 30.6 pg (28.0-32.0); MEAN CORPUSCULAR VOLUME 93.9 fL (80.0-94.0); MEAN PLATELET VOLUME 8.3 fl (7.4-10.4); MONOCYTES % 13.1 % (2.0-8.0); NEUTROPHILS % 78.1 % (40.0-76.0); PLATELET 280 x1000/uL (130-400); RED BLOOD CELL COUNT 2.61 mill/uL (4.7-6.1)
[2021-09-02] MEDS: ASPIRIN 325MG TABLET PO SCH (08:24)
[2021-09-02] MEDS: AMLODIPINE 5MG TABLET PO SCH ×2 (08:25→20:24)
[2021-09-02] MEDS: CEFTRIAXONE 1,000 MG in DEXTROSE 5% WATER 50 ML IV SCH (08:25)
[2021-09-02] MEDS: ACETAMINOPHEN 325MG TABLET PO PRN (10:20)
[2021-09-02] MEDS ORDERED: NALOXONE HCL 0.4MG/ML VIAL IV PRN (12:30)
[2021-09-02] MEDS: LORATADINE 10MG TABLET PO SCH (13:58)
[2021-09-02] MEDS: FAMOTIDINE 20MG TABLET PO SCH (20:24)
[2021-09-02 21:00] LABS: HEMATOCRIT. 24.9 % (42.0-52.0); MEAN CORPUSCULAR HEMOGLOBIN 30.1 pg (28.0-32.0); MEAN PLATELET VOLUME 8.5 fl (7.4-10.4); PLATELET 302 x1000/uL (130-400); RED BLOOD CELL COUNT 2.65 mill/uL (4.7-6.1)
[2021-09-02 22:43] LABS: PLATELET ESTIMATE NORMAL
[2021-09-03] VITALS (9 sets, daily range): BP systolic 112–162; BP diastolic 66–103
[2021-09-03] MEDS: BLOOD SUGAR DIAGNOSTIC STRIP TEST SCH ×4 (06:24→20:35)
[2021-09-03 07:52] LABS: BASOPHILS % 0.8 % (0.0-2.0); HEMATOCRIT. 24.5 % (42.0-52.0); HEMOGLOBIN. 7.8 g/dL (14.0-18.0); LYMPHOCYTES % 7.3 % (20.0-50.0); MEAN CORPUSCULAR HEMOGLOBIN 30.2 pg (28.0-32.0); MEAN CORPUSCULAR VOLUME 95.2 fL (80.0-94.0); MEAN PLATELET VOLUME 7.8 fl (7.4-10.4); MONOCYTES % 12.3 % (2.0-8.0); NEUTROPHILS % 78.6 % (40.0-76.0); PLATELET 297 x1000/uL (130-400); RED BLOOD CELL COUNT 2.58 mill/uL (4.7-6.1)
[2021-09-03] MEDS: LORATADINE 10MG TABLET PO SCH (08:40)
[2021-09-03] MEDS: CEFTRIAXONE 1,000 MG in DEXTROSE 5% WATER 50 ML IV SCH (08:40)
[2021-09-03] MEDS: AMLODIPINE 5MG TABLET PO SCH ×2 (08:40→20:35)
[2021-09-03] MEDS: LACTULOSE 20G/30ML UDC PO SCH (09:00)
[2021-09-03] MEDS: ASPIRIN 325MG TABLET PO SCH (09:00)
[2021-09-03] MEDS ORDERED: LIDOCAINE HCL 1% 20ML VIAL (Pyxis) INJ ONE (15:17)
[2021-09-03] MEDS ORDERED: BUPIVACAINE HCL/PF 0.5% (5MG/ML) 10ML ONE (15:17)
[2021-09-03] MEDS ORDERED: BACITRACIN 15GM TUBE TOP ONE (15:17)
[2021-09-03] MEDS ORDERED: POLYMYXIN B SULFATE 500000 UNITS/VIAL ONE (15:18)
[2021-09-03] MEDS ORDERED: VANCOMYCIN HCL 1 GM/VIAL ONE (15:18)
[2021-09-03] MEDS ORDERED: MIDAZOLAM HCL 2 MG/2 ML VIAL ONE (16:17)
[2021-09-03] MEDS ORDERED: CEFAZOLIN SODIUM 1000MG/VIAL ONE (16:17)
[2021-09-03] MEDS ORDERED: PROPOFOL 200MG/20ML VIAL IV ONE ×2 (16:17→16:47)
[2021-09-03] MEDS ORDERED: MORPHINE SULFATE 2 MG/ML CPJ (NOT FOR IM USE) IV PRN (17:15)
[2021-09-03] MEDS ORDERED: HYDROMORPHONE HCL/PF 2MG/ML CPJ IV PRN (17:15)
[2021-09-03] MEDS ORDERED: ONDANSETRON HCL 4MG/2ML INJ IV PRN (17:15)
[2021-09-03] MEDS ORDERED: SODIUM CHLORIDE 0.9% 1,000 ML IV ONE (17:15)
[2021-09-03] MEDS: FAMOTIDINE 20MG TABLET PO SCH (20:35)
[2021-09-04] VITALS (9 sets, daily range): BP systolic 153–175; BP diastolic 73–90
[2021-09-04] MEDS: CLONIDINE 0.1MG TABLET PO PRN (03:30)
[2021-09-04 06:05] LABS: HEMATOCRIT. 25.9 % (42.0-52.0); HEMOGLOBIN. 8.3 g/dL (14.0-18.0); MEAN CORPUSCULAR HEMOGLOBIN 30.3 pg (28.0-32.0); MEAN CORPUSCULAR VOLUME 94.9 fL (80.0-94.0); MEAN PLATELET VOLUME 7.9 fl (7.4-10.4); PLATELET 318 x1000/uL (130-400); RED BLOOD CELL COUNT 2.73 mill/uL (4.7-6.1); RED CELL DISTRIBUTION WIDTH 15.9 % (11.6-14.6)
[2021-09-04] MEDS: BLOOD SUGAR DIAGNOSTIC STRIP TEST SCH ×4 (06:48→21:00)
[2021-09-04] MEDS: ASPIRIN 325MG TABLET PO SCH (08:30)
[2021-09-04] MEDS: AMLODIPINE 5MG TABLET PO SCH ×2 (08:31→22:01)
[2021-09-04] MEDS: LORATADINE 10MG TABLET PO SCH (08:31)
[2021-09-04] MEDS: LACTULOSE 20G/30ML UDC PO SCH (08:31)
[2021-09-04 10:30] LABS: PLATELET ESTIMATE NORMAL
[2021-09-04] MEDS ORDERED: DEXTROSE 50% WATER 50ML SYRINGE IV PRN (14:15)
[2021-09-04] MEDS: INSULIN LISPRO 100 UNITS/ML SUBCUT SCH ×2 (17:05→21:00)
[2021-09-04] MEDS: FAMOTIDINE 20MG TABLET PO SCH (22:01)
[2021-09-04] MEDS: EPOETIN ALFA-EPBX 10,000 UNIT/ML VIAL SUBCUT SCH (23:02)
[2021-09-05] VITALS: BP 156/62
[2021-09-05 04:00] VITALS: BP 150/70
[2021-09-05] MEDS: LORAZEPAM 2MG/ML CPJ IM PRN (04:06)
[2021-09-05] MEDS: BLOOD SUGAR DIAGNOSTIC STRIP TEST SCH ×4 (07:41→21:37)
[2021-09-05] MEDS: HALOPERIDOL LACTATE 5MG/ML VIAL IM PRN (08:03)
[2021-09-05] MEDS ORDERED: LIDOCAINE HCL 1% 10 MG/ML 10ML VIAL ONE (08:06)
[2021-09-05 08:30] VITALS: BP 105/59
[2021-09-05] MEDS: AMLODIPINE 5MG TABLET PO SCH ×2 (09:00→21:41)
[2021-09-05] MEDS: LACTULOSE 20G/30ML UDC PO SCH (10:07)
[2021-09-05] MEDS: LORATADINE 10MG TABLET PO SCH (10:07)
[2021-09-05] MEDS: ASPIRIN 325MG TABLET PO SCH (10:07)
[2021-09-05] MEDS: INSULIN LISPRO 100 UNITS/ML SUBCUT SCH ×4 (10:10→21:00)
[2021-09-05 12:00] VITALS: BP 129/55
[2021-09-05 13:17] LABS: BASOPHILS % 0.7 % (0.0-2.0); EOSINOPHILS % 0.3 % (0.0-5.0); HEMATOCRIT. 23.4 % (42.0-52.0); HEMOGLOBIN. 7.4 g/dL (14.0-18.0); LYMPHOCYTES % 7.5 % (20.0-50.0); MEAN CORPUSCULAR HEMOGLOBIN 30.4 pg (28.0-32.0); MEAN CORPUSCULAR VOLUME 95.9 fL (80.0-94.0); MEAN PLATELET VOLUME 7.5 fl (7.4-10.4); MONOCYTES % 11.2 % (2.0-8.0); NEUTROPHILS % 80.3 % (40.0-76.0); PLATELET 284 x1000/uL (130-400); RED BLOOD CELL COUNT 2.44 mill/uL (4.7-6.1); RED CELL DISTRIBUTION WIDTH 16.3 % (11.6-14.6)
[2021-09-05] MEDS: LEVOFLOXACIN 250MG TABLET PO SCH (15:00)
[2021-09-05 15:04] VITALS: BP 129/55
[2021-09-05 16:30] LABS: BG BASE EXCESS -0.1 mmol/L (-2.0-2.0); BG CARBOXYHEMOGLOBIN 0.2 % (0.5-1.5); BG DEOXYHEMOGLOBIN 16.4 % (0.0-5.0); BG FRACTION INSPIRED OXYGEN 21; BG HCO3 ACT 27.3 mmol/L (22.0-26.0); BG METHEMOGLOBIN 0.1 % (0.0-1.5); BG OXYGEN SATURATION 83.6 % (92.0-98.5); BG OXYHEMOGLOBIN 83.3 % (94.0-97.0); BG PCO2 60.1 mmHg (35.0-45.0); BG PH 7.275 (7.350-7.450); BG PO2 53.3 mmHg (75.0-100.0); BG SAMPLE SITE RIGHT BRACHIAL; BG VENT MODE ROOM AIR
[2021-09-05] MEDS: RISPERIDONE 0.5MG TABLET PO SCH (16:50)
[2021-09-05] MEDS ORDERED: VANCOMYCIN 1 G PREMIX 200 ML IV NR (17:00)
[2021-09-05 19:30] LABS: HEPATITIS B SURFACE ANTIGEN NEGATIVE
[2021-09-05 20:00] VITALS: BP 136/61
[2021-09-05] MEDS: FAMOTIDINE 20MG TABLET PO SCH (21:41)
[2021-09-06] VITALS: BP 135/65
[2021-09-06 04:00] VITALS: BP 140/64
[2021-09-06] MEDS: RISPERIDONE 0.5MG TABLET PO SCH ×2 (06:00→18:00)
[2021-09-06 06:21] LABS: BG BASE EXCESS -2.1 mmol/L (-2.0-2.0); BG CARBOXYHEMOGLOBIN 0.7 % (0.5-1.5); BG DEOXYHEMOGLOBIN 1.4 % (0.0-5.0); BG HCO3 ACT 24.5 mmol/L (22.0-26.0); BG METHEMOGLOBIN 0.1 % (0.0-1.5); BG OXYGEN SATURATION 98.6 % (92.0-98.5); BG OXYHEMOGLOBIN 97.8 % (94.0-97.0); BG PCO2 51.9 mmHg (35.0-45.0); BG PH 7.292 (7.350-7.450); BG PO2 137.2 mmHg (75.0-100.0); BG SAMPLE SITE LEFT RADIAL; BG TOTAL HEMOGLOBIN 8.4 g/dL (12.0-18.0); BG VENT MODE MASK - BIPAP
[2021-09-06] MEDS: BLOOD SUGAR DIAGNOSTIC STRIP TEST SCH ×4 (06:45→21:39)
[2021-09-06] MEDS: INSULIN LISPRO 100 UNITS/ML SUBCUT SCH ×4 (06:59→21:39)
[2021-09-06 07:11] LABS: BASOPHILS % 0.9 % (0.0-2.0); EOSINOPHILS % 0.5 % (0.0-5.0); HEMATOCRIT. 23.2 % (42.0-52.0); HEMOGLOBIN. 7.5 g/dL (14.0-18.0); LYMPHOCYTES % 7.8 % (20.0-50.0); MEAN CORPUSCULAR HEMOGLOBIN 30.5 pg (28.0-32.0); MEAN CORPUSCULAR VOLUME 94.3 fL (80.0-94.0); MEAN PLATELET VOLUME 7.5 fl (7.4-10.4); MONOCYTES % 9.1 % (2.0-8.0); NEUTROPHILS % 81.7 % (40.0-76.0); PLATELET 333 x1000/uL (130-400); RED BLOOD CELL COUNT 2.46 mill/uL (4.7-6.1); RED CELL DISTRIBUTION WIDTH 15.6 % (11.6-14.6)
[2021-09-06] MEDS: LORAZEPAM 2MG/ML CPJ IM PRN (07:15)
[2021-09-06 08:18] VITALS: BP 178/56
[2021-09-06] MEDS: LORATADINE 10MG TABLET PO SCH (08:46)
[2021-09-06] MEDS: ASPIRIN 325MG TABLET PO SCH (08:46)
[2021-09-06] MEDS: LACTULOSE 20G/30ML UDC PO SCH (08:46)
[2021-09-06] MEDS: AMLODIPINE 5MG TABLET PO SCH ×2 (08:46→21:38)
[2021-09-06] MEDS ORDERED: HYDRALAZINE 20MG/ML VIAL IV PRN (11:30)
[2021-09-06 12:10] VITALS: BP 166/46
[2021-09-06] MEDS ORDERED: METHYLPREDNISOLONE SOD SUCC 40 MG/ML VIAL IV NR (14:00)
[2021-09-06 14:01] LABS: BG BASE EXCESS -1.9 mmol/L (-2.0-2.0); BG CARBOXYHEMOGLOBIN 0.1 % (0.5-1.5); BG DEOXYHEMOGLOBIN 2.1 % (0.0-5.0); BG METHEMOGLOBIN 0.3 % (0.0-1.5); BG OXYGEN SATURATION 97.9 % (92.0-98.5); BG OXYHEMOGLOBIN 97.5 % (94.0-97.0); BG PCO2 53.6 mmHg (35.0-45.0); BG PH 7.286 (7.350-7.450); BG PO2 116.2 mmHg (75.0-100.0); BG SAMPLE SITE RIGHT BRACHIAL; BG VENT MODE NASAL CANNULA
[2021-09-06] MEDS: PREDNISONE 20MG TABLET PO SCH (15:26)
[2021-09-06 16:18] VITALS: BP 138/80
[2021-09-06 20:00] VITALS: BP 133/65
[2021-09-06] MEDS ORDERED: EPOETIN ALFA-EPBX 10,000 UNIT/ML VIAL SUBCUT SCH (21:00)
[2021-09-06] MEDS ORDERED: EPOETIN ALFA-EPBX 4,000 UNIT/ML VIAL SUBCUT SCH (21:00)
[2021-09-06] MEDS: IPRATROPIUM/ALBUTEROL 0.5-3(2.5)MG/3ML NEB HHN SCH (21:09)
[2021-09-06] MEDS: FAMOTIDINE 20MG TABLET PO SCH (21:38)
[2021-09-07] VITALS (7 sets, daily range): BP systolic 103–160; BP diastolic 46–79
[2021-09-07] MEDS: IPRATROPIUM/ALBUTEROL 0.5-3(2.5)MG/3ML NEB HHN SCH ×3 (01:13→16:04)
[2021-09-07] MEDS: ACETAMINOPHEN 325MG TABLET PO PRN (01:50)
[2021-09-07 05:59] LABS: HEMATOCRIT. 26.7 % (42.0-52.0); HEMOGLOBIN. 8.5 g/dL (14.0-18.0); MEAN CORPUSCULAR HEMOGLOBIN 30.4 pg (28.0-32.0); MEAN PLATELET VOLUME 7.9 fl (7.4-10.4); PLATELET 343 x1000/uL (130-400); RED BLOOD CELL COUNT 2.81 mill/uL (4.7-6.1); RED CELL DISTRIBUTION WIDTH 16.1 % (11.6-14.6)
[2021-09-07] MEDS: RISPERIDONE 0.5MG TABLET PO SCH ×2 (07:01→18:10)
[2021-09-07] MEDS: BLOOD SUGAR DIAGNOSTIC STRIP TEST SCH ×3 (07:43→18:16)
[2021-09-07 07:53] LABS: BG BASE EXCESS -0.3 mmol/L (-2.0-2.0); BG CARBOXYHEMOGLOBIN 0.3 % (0.5-1.5); BG DEOXYHEMOGLOBIN 7.2 % (0.0-5.0); BG FRACTION INSPIRED OXYGEN 21; BG HCO3 ACT 25.1 mmol/L (22.0-26.0); BG METHEMOGLOBIN 0.1 % (0.0-1.5); BG OXYGEN SATURATION 92.8 % (92.0-98.5); BG OXYHEMOGLOBIN 92.4 % (94.0-97.0); BG PCO2 44.4 mmHg (35.0-45.0); BG PO2 68.3 mmHg (75.0-100.0); BG SAMPLE SITE RIGHT RADIAL; BG TOTAL HEMOGLOBIN 10.3 g/dL (12.0-18.0); BG VENT MODE ROOM AIR
[2021-09-07] MEDS: LACTULOSE 20G/30ML UDC PO SCH (09:01)
[2021-09-07] MEDS: PREDNISONE 20MG TABLET PO SCH (09:01)
[2021-09-07] MEDS: ASPIRIN 325MG TABLET PO SCH (09:01)
[2021-09-07] MEDS: AMLODIPINE 5MG TABLET PO SCH (09:02)
[2021-09-07] MEDS: LORATADINE 10MG TABLET PO SCH (09:02)
[2021-09-07] MEDS: INSULIN LISPRO 100 UNITS/ML SUBCUT SCH ×3 (09:11→18:11)
[2021-09-07 13:38] LABS: PLATELET ESTIMATE NORMAL
[2021-09-07] MEDS: CLONIDINE 0.1MG TABLET PO PRN (14:22)
[2021-09-07] MEDS: LEVOFLOXACIN 250MG TABLET PO SCH (14:22)
[2021-09-08] MEDS ORDERED: EPOETIN ALFA-EPBX 4,000 UNIT/ML VIAL SUBCUT SCH (21:00)
[2021-09-10] MEDS ORDERED: PREDNISONE 20MG TABLET PO SCH (09:00)
[2021-09-14] MEDS ORDERED: PREDNISONE 10MG TABLET PO SCH (09:00)
== END 2021-09-07 21:00 | DRG 853 ==
LOC: ER 00:52 → 7EST 03:41 → ENRESERV 07:19 → 3WST 08-30 17:05 → 6WST 09-04 09:06
PROVIDERS: ADMIT Internal Medicine; ATTEND Internal Medicine
PROC: 047K3ZZ Dilation of Right Femoral Artery, Percutaneous Approach (ICD-10-PCS; principal; 2021-08-30)
PROC: 047L3ZZ Dilation of Left Femoral Artery, Percutaneous Approach (ICD-10-PCS; 2021-08-30)
PROC: 047N3ZZ Dilation of Left Popliteal Artery, Percutaneous Approach (ICD-10-PCS; 2021-08-30)
PROC: 047U3ZZ Dilation of Left Peroneal Artery, Percutaneous Approach (ICD-10-PCS; 2021-08-30)
PROC: 0Y6N0Z9 Detachment at Left Foot, Partial 1st Ray, Open Approach (ICD-10-PCS; 2021-08-31)
PROC: 02HV33Z Insertion of Infusion Device into Superior Vena Cava, Percutaneous Approach (ICD-10-PCS; 2021-09-01)
PROC: B548ZZA Ultrasonography of Superior Vena Cava, Guidance (ICD-10-PCS; 2021-09-01)
PROC: B5181ZA Fluoroscopy of Superior Vena Cava using Low Osmolar Contrast, Guidance (ICD-10-PCS; 2021-09-01)
PROC: 0Y6N0Z9 Detachment at Left Foot, Partial 1st Ray, Open Approach (ICD-10-PCS; 2021-09-03)
PROC: 0Y6N0ZB Detachment at Left Foot, Partial 2nd Ray, Open Approach (ICD-10-PCS; 2021-09-03)
PROC: 0Y6N0ZC Detachment at Left Foot, Partial 3rd Ray, Open Approach (ICD-10-PCS; 2021-09-03)
PROC: 0Y6N0ZD Detachment at Left Foot, Partial 4th Ray, Open Approach (ICD-10-PCS; 2021-09-03)
PROC: 0Y6N0ZF Detachment at Left Foot, Partial 5th Ray, Open Approach (ICD-10-PCS; 2021-09-03)
PROC: 5A1D70Z Performance of Urinary Filtration, Intermittent, Less than 6 Hours Per Day (ICD-10-PCS; 2021-09-03)
PROC: 02HV33Z Insertion of Infusion Device into Superior Vena Cava, Percutaneous Approach (ICD-10-PCS; 2021-09-05)
PROC: B548ZZA Ultrasonography of Superior Vena Cava, Guidance (ICD-10-PCS; 2021-09-05)
PROC: B5181ZA Fluoroscopy of Superior Vena Cava using Low Osmolar Contrast, Guidance (ICD-10-PCS; 2021-09-05)
PROC: 5A1D70Z Performance of Urinary Filtration, Intermittent, Less than 6 Hours Per Day (ICD-10-PCS; 2021-09-05)
PROC: 5A09357 Assistance with Respiratory Ventilation, Less than 24 Consecutive Hours, Continuous Positive Airway Pressure (ICD-10-PCS; 2021-09-06)
PROC: 5A1D70Z Performance of Urinary Filtration, Intermittent, Less than 6 Hours Per Day (ICD-10-PCS; 2021-09-07)
DX: A41.9 Sepsis, unspecified organism (principal); N18.6 End stage renal disease; I50.33 Acute on chronic diastolic (congestive) heart failure; G93.41 Metabolic encephalopathy; E11.52 Type 2 diabetes mellitus with diabetic peripheral angiopathy with gangrene; I13.2 Hypertensive heart and chronic kidney disease with heart failure and with stage 5 chronic kidney disease, or end stage renal disease; E72.20 Disorder of urea cycle metabolism, unspecified; L02.612 Cutaneous abscess of left foot; D64.9 Anemia, unspecified; E11.22 Type 2 diabetes mellitus with diabetic chronic kidney disease; E11.649 Type 2 diabetes mellitus with hypoglycemia without coma; E78.5 Hyperlipidemia, unspecified; E66.9 Obesity, unspecified; I44.7 Left bundle-branch block, unspecified; F41.9 Anxiety disorder, unspecified; Z20.822 Contact with and (suspected) exposure to COVID-19; I25.10 Atherosclerotic heart disease of native coronary artery without angina pectoris; Z79.02 Long term (current) use of antithrombotics/antiplatelets; I25.2 Old myocardial infarction; Z79.4 Long term (current) use of insulin; Z79.899 Other long term (current) drug therapy; Z86.73 Personal history of transient ischemic attack (TIA), and cerebral infarction without residual deficits; Z87.891 Personal history of nicotine dependence; Z89.412 Acquired absence of left great toe; Z95.5 Presence of coronary angioplasty implant and graft; Z99.2 Dependence on renal dialysis; Z78.1 Physical restraint status; Z68.28 Body mass index [BMI] 28.0-28.9, adult
CPT/HCPCS: 36415; 36573; 36600; 37228; 71045; 73630; 74176; 75635; 75710; 80048; 80053; 80061; 80202; 80305; 80320; 81003; 82140; 82375; 82550; 82553; 82805; 82962; 83036; 83605; 83735; 83880; 84145; 84439; 84443; 84478; 84484; 85025; 85347; 86705; 86709; 86803; 87070; 87075; 87077; 87186; 87340; 87426; 88311; 93005; 93970; 97116; 97162; 97164; 99291; C1725; C1760; C1769; C1893; C1894; J0690; J0696; J0885; J1200; J1630; J1644; J1815; J2060; J2250; J2370; J2543; J2704; J2920; J3010; J3370; J3490; J7060; J7512; Q9967; G0480

== ENCOUNTER 2022-02-23 12:54 | Emergency (ER) | payer OTHER, MEDICAID ==
[~2022-02-23] VITALS: Ht 167.6 cm; Wt 82.0 kg
[~2022-02-23 12:54] MED LIST changes: +BENA10TA74 PO; +CLON-457 PO; -CLOP-31 MT; +FAMO-135 PO; -GLIP5TAB12 PO; -HYDR-4135 MT; -HYDR100T26 MT; +INSU100V37 SQ; +LORA10TA7 PO; -LOSA100T3 MT; +NEPVIT MT; +REN800 PO; +TRAM50TA3 MT
[2022-02-23] MEDS ORDERED: ACETAMINOPHEN 325MG TABLET PO ONE (13:30)
[2022-02-23] MEDS ORDERED: TOPUD PO (15:28)
[2022-02-23] MEDS ORDERED: LIDO1ADH23 TP (15:28)
[2022-02-23] MEDS ORDERED: KETOROLAC 60MG/2ML VIAL IM ONE (15:30)
[2022-02-24 03:00] VITALS: BP 128/59
== END 2022-02-24 03:36 ==
LOC: ER 12:54
DX: M54.2 Cervicalgia (principal); M54.50 Low back pain, unspecified; W18.39XA Other fall on same level, initial encounter; Y93.89 Activity, other specified; Y92.89 Other specified places as the place of occurrence of the external cause; Y99.8 Other external cause status; D64.9 Anemia, unspecified; I25.10 Atherosclerotic heart disease of native coronary artery without angina pectoris; I50.9 Heart failure, unspecified; Z99.2 Dependence on renal dialysis; K21.9 Gastro-esophageal reflux disease without esophagitis; E78.00 Pure hypercholesterolemia, unspecified; Z79.899 Other long term (current) drug therapy
CPT/HCPCS: 70450; 72125; 72192; 96372; 99285; J1885

== ENCOUNTER 2022-04-10 18:17 | Inpatient (IN) | payer OTHER, MEDICAID ==
[~2022-04-10] VITALS: Ht 172.7 cm; Wt 70.8 kg
[~2022-04-10 18:17] MED LIST changes: +LIDO1ADH23 TP; +TOPUD PO
[2022-04-10 19:03] LABS: BASOPHILS % 0.6 % (0.0-2.0); EOSINOPHILS % 1.3 % (0.0-5.0); HEMATOCRIT. 31.2 % (42.0-52.0); HEMOGLOBIN. 9.6 g/dL (14.0-18.0); LYMPHOCYTES % 20.4 % (20.0-50.0); MEAN CORPUSCULAR HEMOGLOBIN 27.3 pg (28.0-32.0); MEAN CORPUSCULAR VOLUME 88.3 fL (80.0-94.0); MONOCYTES % 11.6 % (2.0-8.0); NEUTROPHILS % 66.1 % (40.0-76.0); PLATELET 315 x1000/uL (130-400); RED BLOOD CELL COUNT 3.54 mill/uL (4.7-6.1); RED CELL DISTRIBUTION WIDTH 14.8 % (11.6-14.6)
[2022-04-10 19:10] LABS: CHLORIDE 107 mEq/L (98-107)
[2022-04-10] MEDS ORDERED: MORPHINE SULFATE 4 MG/ML CPJ (NOT FOR IM USE) IV ONE (23:00)
[2022-04-11 04:17] VITALS: BP 135/72
[2022-04-11] MEDS ORDERED: FOLI1TAB63 PO (05:29)
[2022-04-11] MEDS ORDERED: MECL-159 MT (05:29)
[2022-04-11] MEDS ORDERED: EZET10TA13 PO (05:29)
[2022-04-11] MEDS ORDERED: HYDR-4001 MT ×2 (05:29)
[2022-04-11] MEDS ORDERED: DEXTROSE 50% WATER 50ML SYRINGE IV PRN (07:30)
[2022-04-11] MEDS ORDERED: NALOXONE HCL 0.4MG/ML VIAL IV PRN (08:15)
[2022-04-11 08:30] VITALS: BP 163/81
[2022-04-11] MEDS: FAMOTIDINE 20MG/2ML VIAL IV SCH (08:59)
[2022-04-11] MEDS: LISINOPRIL 10MG TABLET PO SCH (09:00)
[2022-04-11] MEDS: DEXAMETHASONE 6MG TABLET PO SCH (09:00)
[2022-04-11] MEDS: BLOOD SUGAR DIAGNOSTIC STRIP TEST SCH ×3 (11:40→21:23)
[2022-04-11 12:00] VITALS: BP 154/79
[2022-04-11] MEDS: INSULIN LISPRO 100 UNITS/ML SUBCUT SCH ×3 (12:10→22:08)
[2022-04-11 13:55] LABS: HEPATITIS B SURFACE ANTIGEN NEGATIVE
[2022-04-11] MEDS: HEPARIN 5000 UNITS/ML VIAL SUBCUT SCH ×2 (13:56→22:07)
[2022-04-11 16:00] VITALS: BP 155/97
[2022-04-11 20:00] VITALS: BP 102/81
[2022-04-11] MEDS: ATORVASTATIN CALCIUM 10MG TABLET PO SCH (22:07)
[2022-04-12] VITALS: BP 150/93
[2022-04-12 04:00] VITALS: BP 117/75
[2022-04-12] MEDS: HEPARIN 5000 UNITS/ML VIAL SUBCUT SCH ×3 (05:02→21:17)
[2022-04-12] MEDS: BLOOD SUGAR DIAGNOSTIC STRIP TEST SCH ×4 (05:57→21:13)
[2022-04-12] MEDS: INSULIN LISPRO 100 UNITS/ML SUBCUT SCH ×4 (05:57→21:16)
[2022-04-12 08:00] VITALS: BP 155/77
[2022-04-12] MEDS: FAMOTIDINE 20MG/2ML VIAL IV SCH (09:34)
[2022-04-12] MEDS: LISINOPRIL 10MG TABLET PO SCH (09:34)
[2022-04-12] MEDS: DEXAMETHASONE 6MG TABLET PO SCH (09:39)
[2022-04-12 12:00] VITALS: BP 145/89
[2022-04-12 16:00] VITALS: BP 155/82
[2022-04-12 20:00] VITALS: BP 146/66
[2022-04-12] MEDS: ATORVASTATIN CALCIUM 10MG TABLET PO SCH (21:14)
[2022-04-12] MEDS: EPOETIN ALFA-EPBX 10,000 UNIT/ML VIAL SUBCUT SCH (21:19)
[2022-04-13] VITALS: BP 173/85
[2022-04-13 05:55] VITALS: BP 170/88
[2022-04-13] MEDS: INSULIN LISPRO 100 UNITS/ML SUBCUT SCH ×4 (06:50→22:45)
[2022-04-13] MEDS: BLOOD SUGAR DIAGNOSTIC STRIP TEST SCH ×4 (06:50→21:00)
[2022-04-13] MEDS: HEPARIN 5000 UNITS/ML VIAL SUBCUT SCH ×3 (06:51→22:47)
[2022-04-13 07:42] LABS: BASOPHILS % 0.4 % (0.0-2.0); EOSINOPHILS % 0.1 % (0.0-5.0); HEMATOCRIT. 31.5 % (42.0-52.0); HEMOGLOBIN. 9.9 g/dL (14.0-18.0); LYMPHOCYTES % 27.6 % (20.0-50.0); MEAN CORPUSCULAR HEMOGLOBIN 27.8 pg (28.0-32.0); MEAN CORPUSCULAR VOLUME 88.3 fL (80.0-94.0); MEAN PLATELET VOLUME 7.4 fl (7.4-10.4); MONOCYTES % 5.8 % (2.0-8.0); NEUTROPHILS % 66.1 % (40.0-76.0); PLATELET 377 x1000/uL (130-400); RED BLOOD CELL COUNT 3.57 mill/uL (4.7-6.1); RED CELL DISTRIBUTION WIDTH 14.4 % (11.6-14.6)
[2022-04-13 08:00] VITALS: BP 151/85
[2022-04-13 08:14] LABS: PHOSPHORUS 5.1 mg/dL (2.5-4.9)
[2022-04-13] MEDS: FAMOTIDINE 20MG/2ML VIAL IV SCH (10:27)
[2022-04-13] MEDS: DEXAMETHASONE 6MG TABLET PO SCH (10:27)
[2022-04-13] MEDS: LISINOPRIL 10MG TABLET PO SCH (10:27)
[2022-04-13 12:00] VITALS: BP 168/87
[2022-04-13 14:01] VITALS: BP 141/70
[2022-04-13 16:00] VITALS: BP 154/89
[2022-04-13] MEDS ORDERED: SODIUM HYPOCHLORITE 0.125% 473ML SOLUTION TOP SCH (17:00)
[2022-04-13] MEDS: SODIUM HYPOCHLORITE 0.125% 473ML SOLUTION TOP SCH (18:28)
[2022-04-13] MEDS: ATORVASTATIN CALCIUM 10MG TABLET PO SCH (22:45)
[2022-04-13] MEDS: AMLODIPINE 2.5MG TABLET PO SCH (22:45)
[2022-04-14] VITALS: BP 151/89
[2022-04-14 04:00] VITALS: BP 158/86
[2022-04-14] MEDS: HEPARIN 5000 UNITS/ML VIAL SUBCUT SCH ×3 (05:56→22:33)
[2022-04-14] MEDS: INSULIN LISPRO 100 UNITS/ML SUBCUT SCH ×4 (05:57→22:36)
[2022-04-14] MEDS: BLOOD SUGAR DIAGNOSTIC STRIP TEST SCH ×4 (05:57→21:00)
[2022-04-14 07:35] LABS: BASOPHILS % 0.4 % (0.0-2.0); EOSINOPHILS % 0.1 % (0.0-5.0); HEMATOCRIT. 32.7 % (42.0-52.0); HEMOGLOBIN. 10.2 g/dL (14.0-18.0); LYMPHOCYTES % 25.5 % (20.0-50.0); MEAN CORPUSCULAR HEMOGLOBIN 27.4 pg (28.0-32.0); MEAN CORPUSCULAR VOLUME 87.9 fL (80.0-94.0); MEAN PLATELET VOLUME 7.3 fl (7.4-10.4); MONOCYTES % 4.6 % (2.0-8.0); NEUTROPHILS % 69.4 % (40.0-76.0); PLATELET 360 x1000/uL (130-400); RED BLOOD CELL COUNT 3.72 mill/uL (4.7-6.1); RED CELL DISTRIBUTION WIDTH 14.6 % (11.6-14.6)
[2022-04-14 08:00] VITALS: BP 184/80
[2022-04-14] MEDS: LISINOPRIL 10MG TABLET PO SCH ×2 (08:56→17:54)
[2022-04-14] MEDS: FAMOTIDINE 20MG/2ML VIAL IV SCH (08:56)
[2022-04-14] MEDS: AMLODIPINE 2.5MG TABLET PO SCH (08:56)
[2022-04-14] MEDS: SODIUM HYPOCHLORITE 0.125% 473ML SOLUTION TOP SCH ×2 (09:03→17:54)
[2022-04-14 12:00] VITALS: BP 171/84
[2022-04-14] MEDS: HYDROCODONE/ACETAMINOPHEN 5/325MG TABLET PO PRN (14:33)
[2022-04-14 16:00] VITALS: BP 140/87
[2022-04-14 20:00] VITALS: BP 143/69
[2022-04-14] MEDS: IPRATROPIUM/ALBUTEROL 0.5-3(2.5)MG/3ML NEB HHN SCH (20:00)
[2022-04-14] MEDS: ATORVASTATIN CALCIUM 10MG TABLET PO SCH (22:33)
[2022-04-14] MEDS: AMLODIPINE 5MG TABLET PO SCH (22:33)
[2022-04-15] VITALS: BP 172/48
[2022-04-15 04:00] VITALS: BP 156/83
[2022-04-15] MEDS: IPRATROPIUM/ALBUTEROL 0.5-3(2.5)MG/3ML NEB HHN SCH ×2 (04:00)
[2022-04-15] MEDS: HEPARIN 5000 UNITS/ML VIAL SUBCUT SCH ×3 (05:42→21:15)
[2022-04-15] MEDS: HYDROCODONE/ACETAMINOPHEN 5/325MG TABLET PO PRN (05:44)
[2022-04-15] MEDS: BLOOD SUGAR DIAGNOSTIC STRIP TEST SCH ×4 (06:40→21:18)
[2022-04-15 07:06] LABS: BASOPHILS % 0.5 % (0.0-2.0); EOSINOPHILS % 0.6 % (0.0-5.0); HEMOGLOBIN. 10.4 g/dL (14.0-18.0); LYMPHOCYTES % 17.6 % (20.0-50.0); MEAN CORPUSCULAR HEMOGLOBIN 27.7 pg (28.0-32.0); MEAN CORPUSCULAR VOLUME 88.1 fL (80.0-94.0); MEAN PLATELET VOLUME 7.5 fl (7.4-10.4); MONOCYTES % 5.7 % (2.0-8.0); NEUTROPHILS % 75.6 % (40.0-76.0); PLATELET 387 x1000/uL (130-400); RED BLOOD CELL COUNT 3.75 mill/uL (4.7-6.1); RED CELL DISTRIBUTION WIDTH 14.8 % (11.6-14.6)
[2022-04-15] MEDS: INSULIN LISPRO 100 UNITS/ML SUBCUT SCH ×4 (07:10→21:17)
[2022-04-15 08:00] VITALS: BP 157/90
[2022-04-15] MEDS: LISINOPRIL 10MG TABLET PO SCH (09:28)
[2022-04-15] MEDS: FAMOTIDINE 20MG TABLET PO SCH (09:28)
[2022-04-15] MEDS: AMLODIPINE 5MG TABLET PO SCH ×2 (09:28→21:17)
[2022-04-15] MEDS: SODIUM HYPOCHLORITE 0.125% 473ML SOLUTION TOP SCH ×2 (09:29→18:22)
[2022-04-15 12:00] VITALS: BP 158/85
[2022-04-15 16:00] VITALS: BP 155/89
[2022-04-15 20:00] VITALS: BP 129/68
[2022-04-15] MEDS: ATORVASTATIN CALCIUM 10MG TABLET PO SCH (21:17)
[2022-04-15] MEDS: LISINOPRIL 20MG TABLET PO SCH (21:17)
[2022-04-15] MEDS: EPOETIN ALFA-EPBX 10,000 UNIT/ML VIAL SUBCUT SCH (22:39)
[2022-04-16] VITALS: BP 166/88
[2022-04-16 01:31] LABS: HEPATITIS B SURFACE ANTIGEN NEGATIVE
[2022-04-16 04:00] VITALS: BP 166/76
[2022-04-16] MEDS: BLOOD SUGAR DIAGNOSTIC STRIP TEST SCH ×4 (06:24→21:00)
[2022-04-16] MEDS: INSULIN LISPRO 100 UNITS/ML SUBCUT SCH ×4 (06:24→21:00)
[2022-04-16] MEDS: HEPARIN 5000 UNITS/ML VIAL SUBCUT SCH ×3 (06:24→21:01)
[2022-04-16 08:00] VITALS: BP 145/60
[2022-04-16] MEDS: SODIUM HYPOCHLORITE 0.125% 473ML SOLUTION TOP SCH ×2 (09:00→17:04)
[2022-04-16] MEDS: FAMOTIDINE 20MG TABLET PO SCH (09:03)
[2022-04-16] MEDS: LISINOPRIL 20MG TABLET PO SCH ×2 (09:03→21:01)
[2022-04-16] MEDS: AMLODIPINE 5MG TABLET PO SCH ×2 (09:04→21:00)
[2022-04-16 12:00] VITALS: BP 150/75
[2022-04-16 16:00] VITALS: BP 181/101
[2022-04-16 20:00] VITALS: BP 159/106
[2022-04-16] MEDS: ATORVASTATIN CALCIUM 10MG TABLET PO SCH (21:00)
[2022-04-17] VITALS: BP 138/78
[2022-04-17] MEDS: HYDRALAZINE 20MG/ML VIAL IV PRN (02:04)
[2022-04-17 04:00] VITALS: BP 137/74
[2022-04-17] MEDS: HEPARIN 5000 UNITS/ML VIAL SUBCUT SCH ×3 (05:28→22:10)
[2022-04-17 08:00] VITALS: BP 149/90
[2022-04-17] MEDS: LISINOPRIL 20MG TABLET PO SCH ×2 (08:53→22:11)
[2022-04-17] MEDS: AMLODIPINE 5MG TABLET PO SCH ×2 (08:53→22:13)
[2022-04-17] MEDS: FAMOTIDINE 20MG TABLET PO SCH (08:54)
[2022-04-17] MEDS: SODIUM HYPOCHLORITE 0.125% 473ML SOLUTION TOP SCH ×2 (09:00→14:15)
[2022-04-17 12:00] VITALS: BP 130/68
[2022-04-17 20:00] VITALS: BP 175/108
[2022-04-17 20:05] LABS: HEMATOCRIT 32.8 % (42.0-52.0); HEMOGLOBIN 10.2 g/dL (14.0-18.0)
[2022-04-17] MEDS: BLOOD SUGAR DIAGNOSTIC STRIP TEST SCH (21:00)
[2022-04-17] MEDS: INSULIN LISPRO 100 UNITS/ML SUBCUT SCH (21:00)
[2022-04-17] MEDS: ATORVASTATIN CALCIUM 10MG TABLET PO SCH (22:11)
[2022-04-18] VITALS (8 sets, daily range): BP systolic 118–178; BP diastolic 76–98
[2022-04-18] MEDS ORDERED: HALOPERIDOL LACTATE 5MG/ML VIAL IM PRN ×2 (04:00→11:30)
[2022-04-18] MEDS ORDERED: HALOPERIDOL LACTATE 5MG/ML VIAL IM NR ×3 (04:00→05:45)
[2022-04-18] MEDS: HEPARIN 5000 UNITS/ML VIAL SUBCUT SCH ×3 (05:40→21:19)
[2022-04-18] MEDS: BLOOD SUGAR DIAGNOSTIC STRIP TEST SCH ×4 (06:46→20:58)
[2022-04-18] MEDS: INSULIN LISPRO 100 UNITS/ML SUBCUT SCH ×4 (07:43→20:58)
[2022-04-18] MEDS: FAMOTIDINE 20MG TABLET PO SCH (09:33)
[2022-04-18] MEDS: LISINOPRIL 20MG TABLET PO SCH ×2 (09:34→21:18)
[2022-04-18] MEDS: AMLODIPINE 5MG TABLET PO SCH ×2 (09:35→21:18)
[2022-04-18] MEDS: SODIUM HYPOCHLORITE 0.125% 473ML SOLUTION TOP SCH ×2 (09:35→16:36)
[2022-04-18] MEDS: HYDRALAZINE 20MG/ML VIAL IV PRN (17:09)
[2022-04-18] MEDS: ATORVASTATIN CALCIUM 10MG TABLET PO SCH (21:18)
[2022-04-19] VITALS: BP 161/80
[2022-04-19 04:00] VITALS: BP 150/69
[2022-04-19] MEDS: BLOOD SUGAR DIAGNOSTIC STRIP TEST SCH ×4 (06:27→20:51)
[2022-04-19] MEDS: HEPARIN 5000 UNITS/ML VIAL SUBCUT SCH ×3 (06:34→20:51)
[2022-04-19] MEDS: INSULIN LISPRO 100 UNITS/ML SUBCUT SCH ×4 (07:23→20:51)
[2022-04-19 08:00] VITALS: BP 144/71
[2022-04-19] MEDS: LISINOPRIL 20MG TABLET PO SCH ×2 (09:00→20:50)
[2022-04-19] MEDS: AMLODIPINE 5MG TABLET PO SCH ×2 (09:01→20:50)
[2022-04-19] MEDS: FAMOTIDINE 20MG TABLET PO SCH (09:01)
[2022-04-19] MEDS: SODIUM HYPOCHLORITE 0.125% 473ML SOLUTION TOP SCH ×2 (09:02→18:00)
[2022-04-19 12:00] VITALS: BP 147/93
[2022-04-19 16:00] VITALS: BP 145/64
[2022-04-19 16:36] LABS: HEPATITIS B SURFACE ANTIGEN NEGATIVE
[2022-04-19 20:00] VITALS: BP 146/85
[2022-04-19] MEDS: ATORVASTATIN CALCIUM 10MG TABLET PO SCH (20:50)
[2022-04-20] VITALS: BP 166/86
[2022-04-20] MEDS: HYDRALAZINE 20MG/ML VIAL IV PRN (00:51)
[2022-04-20 04:00] VITALS: BP 157/88
[2022-04-20] MEDS: BLOOD SUGAR DIAGNOSTIC STRIP TEST SCH ×2 (05:51→12:40)
[2022-04-20] MEDS: HEPARIN 5000 UNITS/ML VIAL SUBCUT SCH ×3 (05:52→14:14)
[2022-04-20] MEDS: INSULIN LISPRO 100 UNITS/ML SUBCUT SCH ×2 (07:06→13:10)
[2022-04-20 08:00] VITALS: BP 150/75
[2022-04-20] MEDS: SODIUM HYPOCHLORITE 0.125% 473ML SOLUTION TOP SCH (09:00)
[2022-04-20] MEDS: AMLODIPINE 5MG TABLET PO SCH (09:00)
[2022-04-20] MEDS: FAMOTIDINE 20MG TABLET PO SCH (09:00)
[2022-04-20] MEDS: LISINOPRIL 20MG TABLET PO SCH (09:00)
[2022-04-20 12:00] VITALS: BP 153/59
== END 2022-04-20 16:00 | DRG 177 ==
LOC: ER 18:17 → MICUSO 22:48 → 7EST 04-11 04:10 → 7WST 04-17 03:02
PROVIDERS: ADMIT Internal Medicine; ATTEND Internal Medicine
PROC: 5A1D70Z Performance of Urinary Filtration, Intermittent, Less than 6 Hours Per Day (ICD-10-PCS; 2022-04-11)
PROC: 5A1D70Z Performance of Urinary Filtration, Intermittent, Less than 6 Hours Per Day (ICD-10-PCS; 2022-04-13)
PROC: 5A1D70Z Performance of Urinary Filtration, Intermittent, Less than 6 Hours Per Day (ICD-10-PCS; 2022-04-16)
PROC: 5A1D70Z Performance of Urinary Filtration, Intermittent, Less than 6 Hours Per Day (ICD-10-PCS; 2022-04-18)
PROC: 5A1D70Z Performance of Urinary Filtration, Intermittent, Less than 6 Hours Per Day (ICD-10-PCS; principal; 2022-04-20)
DX: U07.1 COVID-19 (principal); N18.6 End stage renal disease; I13.2 Hypertensive heart and chronic kidney disease with heart failure and with stage 5 chronic kidney disease, or end stage renal disease; G93.49 Other encephalopathy; E11.22 Type 2 diabetes mellitus with diabetic chronic kidney disease; D64.9 Anemia, unspecified; L89.159 Pressure ulcer of sacral region, unspecified stage; I50.9 Heart failure, unspecified; F20.9 Schizophrenia, unspecified; E88.09 Other disorders of plasma-protein metabolism, not elsewhere classified; I25.10 Atherosclerotic heart disease of native coronary artery without angina pectoris; E78.00 Pure hypercholesterolemia, unspecified; E11.51 Type 2 diabetes mellitus with diabetic peripheral angiopathy without gangrene; I44.1 Atrioventricular block, second degree; K21.9 Gastro-esophageal reflux disease without esophagitis; Z79.4 Long term (current) use of insulin; Z79.899 Other long term (current) drug therapy; Z86.73 Personal history of transient ischemic attack (TIA), and cerebral infarction without residual deficits; Z87.01 Personal history of pneumonia (recurrent); Z89.512 Acquired absence of left leg below knee; Z95.5 Presence of coronary angioplasty implant and graft; Z99.2 Dependence on renal dialysis; Z79.82 Long term (current) use of aspirin; I25.2 Old myocardial infarction
CPT/HCPCS: 36415; 80048; 80053; 82962; 83036; 83735; 84100; 84443; 85014; 85018; 85025; 86705; 86709; 86803; 87340; 87426; 93005; 99285; C1893; C9803; J0360; J0885; J1630; J1644; J1815; J2270; J3490; J7030